=== PATIENT | female | born 1975 ===

== ENCOUNTER 2021-01-24 10:15 | Emergency (ER) | payer OTHER, SELFPAY ==
--- NOTE | ~2021-01-24 | CT_ITS ---
EXAMINATION: CT HEAD WITHOUT CONTRAST CLINICAL INFORMATION: Headache COMPARISON: Previous head CT most recent May 2017 TECHNIQUE: Contiguous axial imaging was performed from the skull base to vertex without intravenous administration of contrast. This CT examination was performed using dose optimization techniques as appropriate, variously including the following: *Automated exposure control *Adjustment of mA and/or kV according to patient size (this includes techniques or standardized protocols for targeted exams where dose is matched to indication/reason for exam; i.e. extremities or head) *Use of iterative reconstruction technique DLP: 719 mGy-cm FINDINGS: There is no evidence of acute intracranial hemorrhage or territorial infarction. No abnormal mass effect or midline shift is seen. [place] to white matter differentiation is well preserved. No extra-axial fluid collections are identified. The ventricles are normal in size. There is no abnormal attenuation within the brain parenchyma. The osseous structures and soft tissues are normal. The mastoid air cells and visualized portions of the paranasal sinuses are well aerated. CT/CT head/brain wo con IMPRESSION: Unremarkable exam.
[2021-01-24 10:46] VITALS: BP 186/104; PULSE 94; RESP 18; TEMP 37.1; O2SAT 97; BMI 50.8
--- NOTE | 2021-01-24 13:10 | ECG_ITS ---
Test Reason : HEADACHE Blood Pressure : / mmHG Vent. Rate : 076 BPM Atrial Rate : 076 BPM P-R Int : 136 ms QRS Dur : 126 ms QT Int : 440 ms P-R-T Axes : 038 007 002 degrees QTc Int : 495 ms Normal sinus rhythm Right bundle branch block Abnormal ECG When compared with ECG of 08-OCT-2016 10:48, Right bundle branch block is now Present Referred By: Dillon Killian Electronically Signed By:MIRIAM CALLOWAY MD
--- NOTE | 2021-01-24 13:12 | ED.HA ---
HPI - Headache General Chief Complaint: Headache Stated Complaint: headache Time Seen by Provider: 01/24/21 13:01 Source: patient Mode of arrival: ambulatory Limitations: no limitations History of Present Illness HPI Narrative: Patient presents to the ED for headache for the past 4 days. Patient states history of migraine and presented with similar headache symptoms. Patient states photophobia. Patient states no fever or chills. Patient denies any neck stiffness. Patient denies any recent head trauma. Patient denies any chest pain, shortness of breath, or back pain. Related Data Home Medications Medication Instructions Recorded Confirmed topiramate 25 mg tablet 25 mg PO BID 08/03/20 11/29/20 Previous Rx's Medication Instructions Recorded cholecalciferol (vitamin D3) 25 25 mcg PO DAILY 90 Days #90 tab 05/23/20 mcg (1,000 unit) tablet gabapentin 300 mg capsule 300 mg PO TID 30 Days #90 cap 08/03/20 omeprazole 20 mg tablet,delayed 20 mg PO DAILY 90 Days #90 tab 12/25/20 release oxycodone 5 mg tablet 5 mg PO Q12H PRN 30 Days #60 tab 12/25/20 naproxen 500 mg PO BID PRN #20 tab 01/24/21 Allergies Allergy/AdvReac Type Severity Reaction Status Date / Time No Known Allergies Allergy Verified 01/24/21 10:46 Review of Systems Review of Systems: Yes all other systems are reviewed and are negative Constitutional: Constitutional: Reports as per HPI, Reports no additional constitutional complaints and Reports headache(s) Eyes: Eyes: Reports as per HPI and Reports no additional eye complaints ENT: Reports system reviewed and no additional complaints, except as documented, Reports as per HPI and Reports headache(s) Cardiovascular: Cardiovascular: Reports as per HPI and Reports no additional cardiovascular complaints Respiratory: Respiratory: Reports as per HPI and Reports no additional respiratory complaints Gastrointestinal: Gastrointestinal: Reports as per HPI and Reports no additional gastrointestinal complaints Genitourinary: Genitourinary: Reports no additional female genitourinary complaints and Reports as per HPI Musculoskeletal: Musculoskeletal: Reports no additional musculoskeletal complaints and Reports as per HPI Neurologic: Reports system reviewed and no additional complaints, except as documented, Reports as per HPI and Reports headache(s) Psychiatric: Psychiatric: Reports no additional psychiatric complaints and Reports as per HPI PMFSH Past Medical History Medical History B12 deficiency GERD (gastroesophageal reflux disease) Hypovitaminosis D Migraines Muscle cramps Obesity Surgical History History of section History of tubal ligation Family History Family History Father No problems noted. Mother Diabetes Hypertension Maternal Grandmother Uterine cancer Diabetes Maternal Aunt Breast cancer Hypertension Diabetes Family/Other FH: mental illness Maternal Uncle Developmental delay, moderate Social History Social History (Updated 11/29/20 @ 13:33 by Tomasa Oro MD) Alcohol intake: former Advance Directives: No Advance Directives Information Provided: No Physical Exam Vital Signs: Vital Signs: Last Vital Signs Temp 98.6 F 01/24/21 13:55 Pulse 62 01/24/21 13:55 Resp 19 01/24/21 13:55 BP 119/67 01/24/21 13:55 Pulse Ox 95 01/24/21 13:55 Body Mass Index 50.8 Const: General: cooperative, healthy appearing, comfortable, no acute distress, well developed and alert Orientation/consciousness: patient oriented x3 HENMT: Head: Yes normal to inspection, Yes No palpable skull fracture present, Yes normocephalic, Yes atraumatic, No abrasion, No Acrocyanosis present, No Rubin's sign, No contusion, No cranial bruits, No hematoma, No laceration, No occipital foramen tenderness, No palpable skull fracture, No raccoon eyes, No scalp lesion, No scalp tenderness, No Temporal artery tenderness present and No periorbital ecchymosis Eyes: Other: Mild photophobia General: appearance normal, both eyes and all related structures Neck: Other: Patient has complete range of motion of neck. Negative for any posterior cervical tenderness on palpation. Negative for occipital tenderness. Right upper trapesiuz tenderness on palpation. Neck: Yes normal visual inspection, Yes full ROM, Yes no lymphadenopathy, Yes no meningeal signs, Yes trachea midline, Yes supple and No tender Chest: Chest palpation & inspection: normal inspection of the chest and normal palpation of entire chest wall Resp: Effort & Inspection: normal respiratory effort and able to speak in complete sentences Auscultation: clear to auscultation bilaterally Cardio: Jugular venous distension: no JVD Heart sounds: S1 normal heart sound present and S2 normal heart sound present GI: Inspection: Yes normal to inspection and No abdominal wall ecchymosis Palpation (GI): Soft to palpation, not firm, nontender, no guarding and not rigid : General: No CVA tenderness and Yes no CVA tenderness Back/Spine/Pelvis: Back: no CVA tenderness, No CVA tenderness and back tenderness (right upper trapesiuz tenderness.) Skin: General skin exam: no rashes or lesions noted and elasticity normal Neuro: Other: Negative for slurred speech. Negative for facial droop. Negative pronator drift. All extremities equal strength 5+. Negative Romberg. Gtvbrl-bz-icve rapid hand movement intact General: patient oriented x3, gait normal, no meningeal signs and CN's II-XI intact bilaterally Cranial nerves: Yes CN's II-XII intact bilaterally Extrem: General: Yes normal to inspection and Yes full ROM Psych: Appearance: grossly normal, well kempt and not disheveled Course Course Course Narrative: Since patient is having migraine exacerbation, but due to patient having elevated blood pressure will do head CT labs and troponin. Reevaluation(s) Reevaluation #1: EKG negative for STEMI. Patient given migraine cocktail except Toradol waiting for head CT scan results. Labs show slight elevated white blood cell count. Patient's white blood cell count was trended and prior lab results shows patient has chronic elevated white blood cell count. Patient is afebrile and non tachy. Patient's blood pressure improved without any blood pressure medication. Not suspecting meningitis. Time: 14:07 Reevaluation #2: Head CT came back normal. Patient's troponin negative. Patient has significantly improved. WIll order Toradol. Time: 16:00 Reevaluation #3: EKG showed new right bundle branch block. Patient is not having any chest pain or shortness of breath. Patient was never placed on nasal cannula. Nasal cannula documentation was error, patient was always on room air. Patient's headache resolved. Not suspecting ACS. Patient is safe for discharge. Perc score 0. Not suspecting PE. Neuro exam is intact Time: 16:50 Additional Reevaluation(s): 18:46. Second troponin negative MDM - Headache MDM Narrative Medical decision making narrative: Migraine headache Lab Data Result diagrams: 01/24/21 13:30 06/09/21 13:30 Labs: Lab Results 01/24/21 01/24/21 01/24/21 Range/Units 13:30 13:30 13:30 WBC 15.3 H (4.8-10.8) X10*3/uL RBC 4.89 (4.20-5.50) X10*6/uL Hgb 12.7 (12.0-16.0) g/dl Hct 39.0 (37-47) % MCV 79.8 L (80-98) fL MCH 26.0 L (27.0-33.0) pg MCHC 32.6 (31.0-35.0) g/dl RDW 14.6 (11.0-16.0) % Plt Count 320 (160-400) X10*3/uL MPV 10.1 (9.4-12.3) fL Immature Gran % (Auto) 0.7 H (0.0-0.4) % Neut % (Auto) 68.7 (45-73) % Lymph % (Auto) 26.7 (20-40) % [place] % (Auto) 3.1 (2-11) % Eos % (Auto) 0.5 (0-4) % Baso % (Auto) 0.3 (0-2) % Lymph # (Auto) 4.1 (1.2-4.9) X10*3/uL [place] # (Auto) 0.5 (0.1-1.2) X10*3/uL Eos # (Auto) 0.1 (0.0-0.4) X10*3/uL Baso # (Auto) 0.0 (0.0-0.2) X10*3/uL Abs Immat Gran (auto) 0.11 H (0.00-0.03) X10*3/uL Absolute Neuts (auto) 10.5 H (2.0-8.3) X10*3/uL Absolute Nucleated RBC 0.000 (0.0-0.012) X10*3/uL Nucleated RBC % (auto) 0.0 (0.0-0.2) /100WBC PT 14.3 H (10.8-13.0) SEC INR 1.2 H (0.9-1.1) APTT 39.0 H (24.1-38.0) SEC Sodium 138 (135-145) mmol/L Potassium 4.4 (3.3-5.1) mmol/L Chloride 105 (96-108) mmol/L Carbon Dioxide 25 (22-29) mmol/L Anion Gap 12 (12-20) BUN 12 (9-16) mg/dL Creatinine 0.80 (0.5-1.4) mg/dL Estim Creat Clear Calc 110.4 Estimated GFR > 60 Random Glucose 84 (60-115) mg/dL Calcium 9.3 (8.4-10.2) mg/dL Total Bilirubin 0.3 (0.0-1.0) mg/dL AST 15 (5-31) U/L ALT 10 (0-31) U/L Alkaline Phosphatase 101 (39-117) U/L Troponin I High Sens (<3.5-17.0) ng/L Total Protein 6.9 (6.5-8.0) g/dL Albumin 3.9 (3.5-5.0) g/dL Beta HCG, Quant mIU/mL 01/24/21 01/24/21 01/24/21 Range/Units 13:30 13:30 17:24 WBC (4.8-10.8) X10*3/uL RBC (4.20-5.50) X10*6/uL Hgb (12.0-16.0) g/dl Hct (37-47) % MCV (80-98) fL MCH (27.0-33.0) pg MCHC (31.0-35.0) g/dl RDW (11.0-16.0) % Plt Count (160-400) X10*3/uL MPV (9.4-12.3) fL Immature Gran % (Auto) (0.0-0.4) % Neut % (Auto) (45-73) % Lymph % (Auto) (20-40) % [place] % (Auto) (2-11) % Eos % (Auto) (0-4) % Baso % (Auto) (0-2) % Lymph # (Auto) (1.2-4.9) X10*3/uL [place] # (Auto) (0.1-1.2) X10*3/uL Eos # (Auto) (0.0-0.4) X10*3/uL Baso # (Auto) (0.0-0.2) X10*3/uL Abs Immat Gran (auto) (0.00-0.03) X10*3/uL Absolute Neuts (auto) (2.0-8.3) X10*3/uL Absolute Nucleated RBC (0.0-0.012) X10*3/uL Nucleated RBC % (auto) (0.0-0.2) /100WBC PT (10.8-13.0) SEC INR (0.9-1.1) APTT (24.1-38.0) SEC Sodium (135-145) mmol/L Potassium (3.3-5.1) mmol/L Chloride (96-108) mmol/L Carbon Dioxide (22-29) mmol/L Anion Gap (12-20) BUN (9-16) mg/dL Creatinine (0.5-1.4) mg/dL Estim Creat Clear Calc Estimated GFR Random Glucose (60-115) mg/dL Calcium (8.4-10.2) mg/dL Total Bilirubin (0.0-1.0) mg/dL AST (5-31) U/L ALT (0-31) U/L Alkaline Phosphatase (39-117) U/L Troponin I High Sens < 3.5 3.7 (<3.5-17.0) ng/L Total Protein (6.5-8.0) g/dL Albumin (3.5-5.0) g/dL Beta HCG, Quant < 2 mIU/mL ECG Data Interpretation: Normal sinus rhythm. Right bundle branch block. Ventricular rate 76. Pr interval 136. QRS 126. QTC 495. Negative STEMI Discharge Plan Discharge Clinical Impression: Migraine Patient Disposition: Home, Self-Care Instructions: Migraine Headache (ED) Additional Instructions: Return to the ED for worsening headache, loss of vision, paralysis of extremities, facial droop, fever, chills, neck stiffness, chest pain, shortness of breath, or any other concerning symptoms. Continue taking oxycodone and topiramate for headache. Will add naproxen to cocktail. Prescriptions: New naproxen 500 mg tablet 500 mg PO BID PRN (Reason: pain) Qty: 20 RF: 0 No Action cholecalciferol (vitamin D3) 25 mcg (1,000 unit) tablet 25 mcg PO DAILY 90 Days Qty: 90 RF: 3 omeprazole 20 mg tablet,delayed release (DR/EC) 20 mg PO DAILY 90 Days Qty: 90 RF: 3 oxycodone 5 mg tablet 5 mg PO Q12H PRN (Reason: chronic pain) 30 Days Qty: 60 RF: 0 topiramate 25 mg tablet 25 mg PO BID RF: 0 gabapentin 300 mg capsule 300 mg PO TID 30 Days Qty: 90 RF: 0 Referrals: Tomasa Nesbitt MD [Primary Care Provider] - 2 days (Migraine excacerbation. Only had one elevated blood pressure. High blood pressure resolved after being given migraine cocktail.) Stand Alone Forms: Work/School Release Interventions: ED Discharge Assessment Last Done: 01/24/21 19:24 Discharge Date/Time: 01/24/21 19:26 Print Language: Bangladeshi
[2021-01-24] MEDS: 0.9 % Sodium Chloride 1,000 ML 999 ML IV (13:32)
[2021-01-24 13:36] LABS: MANUAL DIFF FLAG NO
[2021-01-24 13:38] LABS: Basophils Percent Auto 0.3 % (0-2); Eosinophils Absolute Auto 0.1 X10*3/uL (0.0-0.4); Eosinophils Percent Auto 0.5 % (0-4); Hemoglobin 12.7 g/dl (12.0-16.0); Imm Gran Abs Auto 0.11 X10*3/uL (0.00-0.03); Imm Gran Pct Auto 0.7 % (0.0-0.4); Lymphocytes Absolute Auto 4.1 X10*3/uL (1.2-4.9); Lymphocytes Percent Auto 26.7 % (20-40); Mean Corpuscular HGB Conc 32.6 g/dl (31.0-35.0); Mean Corpuscular Volume 79.8 fL (80-98); Mean Platelet Volume 10.1 fL (9.4-12.3); Monocytes Absolute Auto 0.5 X10*3/uL (0.1-1.2); Monocytes Percent Auto 3.1 % (2-11); Neutrophils Absolute Auto 10.5 X10*3/uL (2.0-8.3); Neutrophils Percent Auto 68.7 % (45-73); Platelet Count 320 X10*3/uL (160-400); Red Blood Count 4.89 X10*6/uL (4.20-5.50); Red Cell Distribution Width 14.6 % (11.0-16.0); White Blood Count 15.3 X10*3/uL (4.8-10.8)
[2021-01-24 13:45] LABS: INTERNATIONAL NORM RATIO 1.2 (0.9-1.1); Prothrombin Time 14.3 SEC (10.8-13.0)
[2021-01-24] MEDS: Metoclopramide HCl 10 MG/2 ML VIAL IVPUSH (13:50)
[2021-01-24] MEDS: diphenhydrAMINE HCL 50 MG/ML VIAL IVPUSH (13:50)
[2021-01-24] MEDS: Butalb/Acetamin/Caff 50/325/40 TABLET 1 TAB PO (13:50)
[2021-01-24 13:55] VITALS: BP 119/67; PULSE 62; RESP 19; TEMP 37; O2SAT 95
[2021-01-24 15:23] LABS: Alanine Aminotransferase 10 U/L (0-31); Albumin Level 3.9 g/dL (3.5-5.0); Alkaline Phosphatase 101 U/L (39-117); Anion Gap 12 (12-20); Aspartate Amino Transferase 15 U/L (5-31); Blood Urea Nitrogen 12 mg/dL (9-16); Chloride 105 mmol/L (96-108); Creatinine Clr Calc Pharmacy 110.4; Estimated Glomerular Filt Rate > 60; Glucose Random 84 mg/dL (60-115); Potassium 4.4 mmol/L (3.3-5.1)
[2021-01-24 15:29] LABS: HCG Quantitative < 2 mIU/mL; Troponin-I High Sensitivity < 3.5 ng/L (<3.5-17.0)
[2021-01-24 15:49] LABS: Bilirubin Total 0.3 mg/dL (0.0-1.0); Calcium 9.3 mg/dL (8.4-10.2); Carbon Dioxide 25 mmol/L (22-29); Sodium 138 mmol/L (135-145); Total Protein 6.9 g/dL (6.5-8.0)
[2021-01-24] MEDS: Ketorolac Tromethamine 30 MG/ML VIAL IVPUSH (16:27)
[2021-01-24 18:05] LABS: Troponin-I High Sensitivity 3.7 ng/L (<3.5-17.0)
== END 2021-01-24 19:26 | disposition home or self-care (01) ==
PROVIDERS: Physician Assistant; Emergency Provider Emergency Medicine; PCP Internal Medicine
DX: G43.009 Migraine without aura, not intractable, without status migrainosus (principal); I45.10 Unspecified right bundle-branch block
CPT/HCPCS: 36415; 70450; 80053; 84484; 84702; 85025; 85610; 85730; 93005; 96361; 96374; 96375; 99284; J1200; J1885; J2765

== ENCOUNTER 2021-01-30 14:52 | Outpatient (REF) | payer OTHER, SELFPAY ==
--- NOTE | ~2021-01-30 | MM_ITS ---
EXAMINATION: MM SCREENING DIGITAL BREAST TOMOSYNTHESIS, BILATERAL CLINICAL INFORMATION: Screening. Asymptomatic. The lifetime risk of breast cancer based on the Tyrer-Cuzick Model is 9%. COMPARISON: Mammography: 09/15/2017, 08/28/2016, 02/14/2015 TECHNIQUE: Digital breast tomosynthesis is performed in both the craniocaudal and mediolateral oblique views along with computer-aided detection (CAD). Synthesized 2D images are generated from the tomosynthesis. Additional bilateral CC and additional bilateral MLO views are provided. FINDINGS: The breasts are almost entirely fatty (ACR BI-RADS breast composition Category a). There are no significant masses, abnormal calcifications, or other abnormalities. Parenchymal pattern is similar to prior exams. The axilla and skin contours are unremarkable. MM/MM tomosynthesis screening BI IMPRESSION: No mammographic evidence of malignancy. ASSESSMENT: BI-RADS 1: Negative RECOMMENDATION: Routine annual mammography screening. This patient's information was entered into a reminder system with a target due date for their next mammogram.
== END 2021-01-30 14:53 | disposition home or self-care (01) ==
LOC: HO.MAMMO 14:52
PROVIDERS: Visit Provider Internal Medicine
DX: Z12.31 Encounter for screening mammogram for malignant neoplasm of breast (principal)
CPT/HCPCS: 77063; 77067

== ENCOUNTER → 2021-02-21 14:30 | Outpatient (BNVA) | payer OTHER, SELFPAY | PROVIDERS: PCP Internal Medicine; Referring Provider Internal Medicine; Visit Provider Physician Assistant | DX: E66.01 Morbid (severe) obesity due to excess calories (principal); K21.9 Gastro-esophageal reflux disease without esophagitis; Z68.43 Body mass index [BMI] 50.0-59.9, adult | CPT/HCPCS: 99202 ==

== ENCOUNTER 2021-02-22 20:16 | Emergency (ER) | payer OTHER, SELFPAY ==
[2021-02-22 20:43] VITALS: BP 193/80; PULSE 104; RESP 18; TEMP 36.7; O2SAT 96; BMI 50.3
[2021-02-22 21:24] VITALS: BP 162/80; PULSE 82; RESP 15; TEMP 36.7; O2SAT 96
--- NOTE | 2021-02-22 21:34 | ED.GENADULT ---
HPI - General Adult General Chief complaint: General Medical Stated complaint: High bp Time Seen by Provider: 02/22/21 21:33 Source: patient and old records reviewed Mode of arrival: ambulatory Limitations: no limitations History of Present Illness HPI narrative: has had a headache x 3 days but her BP has been up to 190s as well even at appointment earlier today, does not take BP medications complaint: headaches, HTN Onset (ago): day(s) (3) Location: head Quality: aching and constant Pain Consistency: constant Relieving factors: none Exacerbating factors: movement and other (bright light noise) Associated symptoms: nausea/vomiting Treatments prior to arrival: none Related Data Home Medications Medication Instructions Recorded Confirmed topiramate 25 mg tablet 25 mg PO BID 08/03/20 02/21/21 meclizine 12.5 mg tablet 12.5 mg PO DAILY 02/21/21 02/21/21 mecobalamin (vitamin B12) 5,000 mcg PO 02/21/21 02/21/21 mcg disintegrating tablet Previous Rx's Medication Instructions Recorded cholecalciferol (vitamin D3) 25 25 mcg PO DAILY 90 Days #90 tab 05/23/20 mcg (1,000 unit) tablet gabapentin 300 mg capsule 300 mg PO TID 30 Days #90 cap 08/03/20 naproxen 500 mg PO BID PRN #20 tab 01/24/21 omeprazole 20 mg tablet,delayed 20 mg PO DAILY 90 Days #90 tab 02/05/21 release oxycodone 5 mg tablet 5 mg PO Q12H PRN 30 Days #60 tab 02/05/21 [id number]-kgonlwuqingrs-[id number] 1 tab PO Q6H PRN #20 tab 02/22/21 cyclobenzaprine 10 mg PO TID PRN #14 tab 02/22/21 ondansetron 4 mg PO Q8H PRN #20 tab 02/22/21 Allergies Allergy/AdvReac Type Severity Reaction Status Date / Time No Known Allergies Allergy Verified 02/22/21 20:43 Review of Systems Review of Systems: Constitutional : No Fever, No Chills, No Fatigue ENT/Mouth : No sore throat, No Rhinorrhea Eyes: pos Eye Pain, No Swelling, No Redness Cardiovascular : No Chest Pain, No SOB, No Dyspnea on Exertion Respiratory : No Cough, No Sputum Gastrointestinal : pos Nausea, pos Vomiting, No Diarrhea, No abdominal Pain Genitourinary : No Dysuria, No Urinary Frequency, No Hematuria, Musculoskeletal : No joint pain, No Myalgias, No Joint Swelling Skin : No Skin Lesions, No rash Neuro : No Weakness, No Numbness, No Dizziness, positive Headache Psych : No Anxiety/Panic, No Depression Heme/Lymph: No Bruising, No Bleeding,No Lymphadenopathy Endocrine : No Polyuria, No Polydipsia All other systems reviewed and are negative [facility] Past Medical History Medical History B12 deficiency GERD (gastroesophageal reflux disease) Hypovitaminosis D Migraines Muscle cramps Neck pain Obesity Surgical History History of section History of tubal ligation Family History Family History Father No problems noted. Mother Diabetes Hypertension Maternal Grandmother Uterine cancer Diabetes Maternal Aunt Breast cancer Hypertension Diabetes Family/Other FH: mental illness Maternal Uncle Developmental delay, moderate Social History Social History Alcohol intake: never Patient Tobacco Use Status: Former Tobacco user Use of substances other than those prescribed or required for medical reasons: No Advance Directives: No Advance Directives Information Provided: No Advance Directives on File: No Physical Exam Vital Signs: Vital Signs: Last Vital Signs Temp 98.1 F 02/22/21 21:24 Pulse 82 02/22/21 21:24 Resp 15 02/22/21 21:24 BP 162/80 H 02/22/21 21:24 Pulse Ox 96 02/22/21 21:24 Body Mass Index 50.3 Appearance: Alert. Oriented X3. No acute distress. Eyes: Pupils equal, round and reactive to light. Photophobia ENT: Pharynx normal. Neck: Normal inspection. Neck supple. no meningeal signs CVS: Normal heart rate and rhythm. Pulses normal. Respiratory: No respiratory distress. Breath sounds normal. Abdomen: Soft and non-tender. Skin: Skin warm and dry. Normal skin color. Normal skin turgor. Extremities: No lower extremity edema. No calf ttp Neuro: Oriented X 3. No motor deficit. No sensory deficit. Course Course Course Narrative: headaches completely resolved 130/62 suspect headache was causing the HTN Medical Decision Making MDM Narrative Medical decision making narrative: 45 yo female with hx of migraines, GERD c/o headache with n/v photophobia - gradual onset, daily headaches has not had HTN before it is hard to determine if it is the pain causing her symptoms or if the HTN is although now BP is 160s seems unlikely to be causing her headaches - will provide migraine cocktail then reassess, gradual onset normal neuro exam - doubt [facility] or [employer] infection, dispo per results and findings. Lab Data Result diagrams: 02/22/21 21:58 02/22/21 21:58 Labs: Lab Results 02/22/21 02/22/21 Range/Units 21:58 21:58 WBC 14.4 H (4.8-10.8) X10*3/uL RBC 4.71 (4.20-5.50) X10*6/uL Hgb 12.2 (12.0-16.0) g/dl Hct 37.6 (37-47) % MCV 79.8 L (80-98) fL MCH 25.9 L (27.0-33.0) pg MCHC 32.4 (31.0-35.0) g/dl RDW 14.6 (11.0-16.0) % Plt Count 283 (160-400) X10*3/uL MPV 10.7 (9.4-12.3) fL Immature Gran % (Auto) 0.7 H (0.0-0.4) % Neut % (Auto) 63.5 (45-73) % Lymph % (Auto) 29.2 (20-40) % [place] % (Auto) 5.8 (2-11) % Eos % (Auto) 0.5 (0-4) % Baso % (Auto) 0.3 (0-2) % Lymph # (Auto) 4.2 (1.2-4.9) X10*3/uL [place] # (Auto) 0.8 (0.1-1.2) X10*3/uL Eos # (Auto) 0.1 (0.0-0.4) X10*3/uL Baso # (Auto) 0.1 (0.0-0.2) X10*3/uL Abs Immat Gran (auto) 0.10 H (0.00-0.03) X10*3/uL Absolute Neuts (auto) 9.1 H (2.0-8.3) X10*3/uL Absolute Nucleated RBC 0.000 (0.0-0.012) X10*3/uL Nucleated RBC % (auto) 0.0 (0.0-0.2) /100WBC Sodium 139 (135-145) mmol/L Potassium 3.9 (3.3-5.1) mmol/L Chloride 106 (96-108) mmol/L Carbon Dioxide 22 (22-29) mmol/L Anion Gap 15 (12-20) BUN 15 (9-16) mg/dL Creatinine 0.83 (0.5-1.4) mg/dL Estim Creat Clear Calc 105.7 Estimated GFR > 60 Random Glucose 88 (60-115) mg/dL Calcium 8.9 (8.4-10.2) mg/dL ECG Data Attestation: I personally reviewed and interpreted this ECG as follows: Interpretation: Rate: 77 Rhythm: NSR [place]: normal Normal P waves. Normal YEISON. RBBB ST T wave : normal no TANIKA qTC: normal prior studies: no acute ischemia The study has been interpreted contemporaneously by me. . Discharge Plan Discharge Clinical Impression: Migraines Qualifiers: Migraine type: without aura Status migrainosus presence: without status migrainosus Intractability: not intractable Qualified Code(s): G43.009 - Migraine without aura, not intractable, without status migrainosus Patient Disposition: Home, Self-Care Instructions: Acute Headache (ED) Additional Instructions: return to ED for any worsening symptoms or concerns Prescriptions: New cyclobenzaprine 10 mg tablet 10 mg PO TID PRN (Reason: muscle spasm) Qty: 14 RF: 0 ddhageqnkf-xoxvyvldkfdos-nnsx 50-325-40 mg tablet 1 tab PO Q6H PRN (Reason: pain) Qty: 20 RF: 0 ondansetron 4 mg tablet,disintegrating 4 mg PO Q8H PRN (Reason: nausea and vomiting) Qty: 20 RF: 0 No Action cholecalciferol (vitamin D3) 25 mcg (1,000 unit) tablet 25 mcg PO DAILY 90 Days Qty: 90 RF: 3 omeprazole 20 mg tablet,delayed release (DR/EC) 20 mg PO DAILY 90 Days Qty: 90 RF: 3 oxycodone 5 mg tablet 5 mg PO Q12H PRN (Reason: chronic pain) 30 Days Qty: 60 RF: 0 naproxen 500 mg tablet 500 mg PO BID PRN (Reason: pain) Qty: 20 RF: 0 topiramate 25 mg tablet 25 mg PO BID RF: 0 gabapentin 300 mg capsule 300 mg PO TID 30 Days Qty: 90 RF: 0 mecobalamin (vitamin B12) 5,000 mcg tablet,disintegrating PO RF: 0 meclizine 12.5 mg tablet 12.5 mg PO DAILY RF: 0 Referrals: Tomasa Nesbitt MD [Primary Care Provider] - 2 days (if not better) Print Language: Zambian
--- NOTE | 2021-02-22 21:41 | ECG_ITS ---
Test Reason : HYPERTENSION Blood Pressure : / mmHG Vent. Rate : 077 BPM Atrial Rate : 077 BPM P-R Int : 134 ms QRS Dur : 134 ms QT Int : 430 ms P-R-T Axes : 038 -04 000 degrees QTc Int : 486 ms Normal sinus rhythm Right bundle branch block Abnormal ECG When compared with ECG of 24-JAN-2021 13:21, No significant change was found Referred By: Stephanie Gonzalez Electronically Signed By:DEIDRA DALAL
[2021-02-22] MEDS: Metoclopramide HCl 10 MG/2 ML VIAL IVPUSH (22:00)
[2021-02-22] MEDS: 0.9 % Sodium Chloride 1,000 ML 999 ML IVCONT (22:00)
[2021-02-22 22:01] LABS: MANUAL DIFF FLAG NO
[2021-02-22] MEDS: diphenhydrAMINE HCL 50 MG/ML VIAL 25 MG IVPUSH (22:02)
[2021-02-22] MEDS: Ketorolac Tromethamine 30 MG/ML VIAL IVPUSH (22:03)
[2021-02-22] MEDS: Magnesium Sulfate/H2O 2 GM/50 ML PIGGYBACK IV (22:04)
[2021-02-22 22:08] LABS: Basophils Absolute Auto 0.1 X10*3/uL (0.0-0.2); Basophils Percent Auto 0.3 % (0-2); Eosinophils Absolute Auto 0.1 X10*3/uL (0.0-0.4); Eosinophils Percent Auto 0.5 % (0-4); Hematocrit 37.6 % (37-47); Hemoglobin 12.2 g/dl (12.0-16.0); Imm Gran Pct Auto 0.7 % (0.0-0.4); Lymphocytes Absolute Auto 4.2 X10*3/uL (1.2-4.9); Lymphocytes Percent Auto 29.2 % (20-40); Mean Corpuscular HGB Conc 32.4 g/dl (31.0-35.0); Mean Corpuscular Hemoglobin 25.9 pg (27.0-33.0); Mean Corpuscular Volume 79.8 fL (80-98); Mean Platelet Volume 10.7 fL (9.4-12.3); Monocytes Absolute Auto 0.8 X10*3/uL (0.1-1.2); Monocytes Percent Auto 5.8 % (2-11); Neutrophils Absolute Auto 9.1 X10*3/uL (2.0-8.3); Neutrophils Percent Auto 63.5 % (45-73); Platelet Count 283 X10*3/uL (160-400); Red Blood Count 4.71 X10*6/uL (4.20-5.50); Red Cell Distribution Width 14.6 % (11.0-16.0); White Blood Count 14.4 X10*3/uL (4.8-10.8)
[2021-02-22 22:36] LABS: Anion Gap 15 (12-20); Blood Urea Nitrogen 15 mg/dL (9-16); Calcium 8.9 mg/dL (8.4-10.2); Carbon Dioxide 22 mmol/L (22-29); Chloride 106 mmol/L (96-108); Creatinine Clr Calc Pharmacy 105.7; Estimated Glomerular Filt Rate > 60; Glucose Random 88 mg/dL (60-115); Potassium 3.9 mmol/L (3.3-5.1); Sodium 139 mmol/L (135-145)
[2021-02-22 23:37] VITALS: BP 130/62
--- NOTE | 2021-02-22 23:39 | PC.NURSE ---
Patient's headache completely resolved
== END 2021-02-23 00:04 | disposition home or self-care (01) ==
PROVIDERS: Emergency Provider Emergency Medicine; PCP Internal Medicine
DX: G43.009 Migraine without aura, not intractable, without status migrainosus (principal)
CPT/HCPCS: 36415; 80048; 85025; 93005; 96361; 96365; 96366; 96375; 99284; J1200; J1885; J2765; J3475

== ENCOUNTER 2021-09-17 15:04 | Outpatient (REF) | payer OTHER, SELFPAY ==
--- NOTE | ~2021-09-17 | US_ITS ---
EXAMINATION: US VENOUS ULTRASOUND WITH DOPPLER LOWER EXTREMITY, RIGHT CLINICAL INFORMATION: Right leg pain. COMPARISON: None TECHNIQUE: Ultrasound of the deep veins is performed from the hip to the calf with compression sonography and color and pulse Doppler assessment. Spectral analysis with color-flow imaging is performed. FINDINGS: There is normal venous compression and respiratory variation and augmented flow. The visualized common femoral vein, superficial femoral vein, profunda femoral vein, popliteal vein, and the trifurcation region shows no evidence of deep venous thrombosis. There is no significant popliteal fossa cyst. Incidental finding of a small right groin lymph node measuring 0.7 x 0.5 cm. If the patient's symptoms persist, followup ultrasound in 5 days 7 days might be of value to exclude proximal propagation from a non-visualized calf vein. US/US venous duplex LE RT IMPRESSION: No DVT demonstrated in the right lower extremity.
== END 2021-09-17 15:05 | disposition home or self-care (01) ==
LOC: HO.US 15:04
PROVIDERS: PCP Internal Medicine; Visit Provider Internal Medicine
DX: M79.604 Pain in right leg (principal)
CPT/HCPCS: 93971

== ENCOUNTER 2021-11-28 09:34 | Outpatient (REF) | payer OTHER, SELFPAY ==
[2021-11-28 11:16] LABS: Anion Gap 15 (12-20); Blood Urea Nitrogen 13 mg/dL (9-16); Calcium 9.3 mg/dL (8.4-10.2); Carbon Dioxide 24 mmol/L (22-29); Chloride 105 mmol/L (96-108); Estimated Glomerular Filt Rate > 60; Glucose Random 93 mg/dL (60-115); Potassium 5.2 mmol/L (3.3-5.1); Sodium 139 mmol/L (135-145)
== END 2021-11-28 09:35 | disposition home or self-care (01) ==
LOC: HO.LAB 09:34
PROVIDERS: PCP Internal Medicine; Visit Provider Nurse Practitioner Family
DX: I10 Essential (primary) hypertension (principal)
CPT/HCPCS: 36415; 80048

== ENCOUNTER 2021-12-08 09:47 | Outpatient (REF) | payer OTHER, SELFPAY ==
[2021-12-08 09:53] LABS: MANUAL DIFF FLAG NO
[2021-12-08 10:36] LABS: Basophils Percent Auto 0.3 % (0-2); Eosinophils Absolute Auto 0.1 X10*3/uL (0.0-0.4); Hematocrit 39.2 % (37.0-47.0); Hemoglobin 12.5 g/dl (12.0-16.0); Imm Gran Abs Auto 0.05 X10*3/uL (0.00-0.03); Imm Gran Pct Auto 0.4 % (0.0-0.4); Lymphocytes Absolute Auto 4.6 X10*3/uL (1.2-4.9); Lymphocytes Percent Auto 32.7 % (20-40); Mean Corpuscular HGB Conc 31.9 g/dl (31.0-35.0); Mean Corpuscular Hemoglobin 25.9 pg (27.0-33.0); Mean Corpuscular Volume 81.3 fL (80.0-98.0); Mean Platelet Volume 10.9 fL (9.4-12.3); Monocytes Absolute Auto 0.4 X10*3/uL (0.1-1.2); Monocytes Percent Auto 2.8 % (2-11); Neutrophils Absolute Auto 8.9 x10*3/uL (2.0-8.3); Neutrophils Percent Auto 62.8 % (45-73); Platelet Count 336 X10*3/uL (160-400); Red Blood Count 4.82 X10*6/uL (4.20-5.50); Red Cell Distribution Width 14.9 % (11.0-16.0); White Blood Count 14.2 X10*3/uL (4.8-10.8)
[2021-12-08 11:07] LABS: Anion Gap 13 (12-20); Blood Urea Nitrogen 17 mg/dL (9-16); Calcium 9.4 mg/dL (8.4-10.2); Carbon Dioxide 26 mmol/L (22-29); Chloride 104 mmol/L (96-108); Estimated Glomerular Filt Rate > 60; Glucose Random 97 mg/dL (60-115); Potassium 4.8 mmol/L (3.3-5.1); Sodium 138 mmol/L (135-145)
== END 2021-12-08 09:48 | disposition home or self-care (01) ==
LOC: HO.LAB 09:47
PROVIDERS: PCP Internal Medicine; Visit Provider Nurse Practitioner Family
DX: I10 Essential (primary) hypertension (principal); E87.5 Hyperkalemia; L03.119 Cellulitis of unspecified part of limb
CPT/HCPCS: 36415; 80048; 85025

== ENCOUNTER → 2021-12-21 13:15 | Outpatient (BNVA) | payer OTHER, SELFPAY | PROVIDERS: Visit Provider Internal Medicine | DX: R22.41 Localized swelling, mass and lump, right lower limb (principal) | CPT/HCPCS: 99202 ==

== ENCOUNTER 2021-12-27 13:25 | Outpatient (REF) | payer OTHER, SELFPAY | END 2021-12-27 13:26 | disposition home or self-care (01) | LOC: HO.LAB 13:25 | PROVIDERS: Referring Provider Internal Medicine; Visit Provider Surgery | DX: L81.9 Disorder of pigmentation, unspecified (principal) | CPT/HCPCS: 11104; 88305; 88312; 99202 ==

== ENCOUNTER → 2022-01-04 15:16 | Outpatient (BNVA) | payer OTHER, SELFPAY | PROVIDERS: Visit Provider Internal Medicine | DX: L81.9 Disorder of pigmentation, unspecified (principal); R22.41 Localized swelling, mass and lump, right lower limb | CPT/HCPCS: 99212 ==

== ENCOUNTER 2022-03-12 09:42 | Outpatient (REF) | payer OTHER, SELFPAY ==
[2022-03-12 11:10] LABS: Anion Gap 14 (12-20); Blood Urea Nitrogen 15 mg/dL (9-16); Calcium 8.8 mg/dL (8.4-10.2); Carbon Dioxide 23 mmol/L (22-29); Chloride 109 mmol/L (96-108); Estimated Glomerular Filt Rate > 60; Glucose Random 93 mg/dL (60-115); Potassium 4.9 mmol/L (3.3-5.1); Sodium 141 mmol/L (135-145)
== END 2022-03-12 09:43 | disposition home or self-care (01) ==
LOC: HO.LAB 09:42
PROVIDERS: PCP Internal Medicine; Visit Provider Nurse Practitioner Family
DX: I73.9 Peripheral vascular disease, unspecified (principal); I83.11 Varicose veins of right lower extremity with inflammation; I10 Essential (primary) hypertension
CPT/HCPCS: 36415; 80048; 99202

== ENCOUNTER 2022-04-08 12:06 | Outpatient (REF) | payer OTHER, SELFPAY ==
--- NOTE | ~2022-04-08 | XR_ITS ---
EXAMINATION: XR CHEST CLINICAL INFORMATION: Pneumonia. COMPARISON: 08/06/2019 chest radiograph. TECHNIQUE: 2 views of the chest were obtained. FINDINGS: No significant abnormality is noted involving the heart, lungs, mediastinum, bony thorax or soft tissues. XR/XR chest 2V IMPRESSION: No acute cardiopulmonary process.
== END 2022-04-08 12:07 | disposition home or self-care (01) ==
LOC: HO.HMGCX 12:06
PROVIDERS: PCP Internal Medicine; Visit Provider Internal Medicine
DX: J18.9 Pneumonia, unspecified organism (principal)
CPT/HCPCS: 71046

== ENCOUNTER 2022-06-09 17:30 | Emergency (ER) | payer OTHER, SELFPAY ==
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
[2022-06-09 17:51] VITALS: BP 123/54; BP 138/64; PULSE 95; PULSE 99; RESP 16; O2SAT 97; BMI 49.0
[2022-06-09 18:49] LABS: MANUAL DIFF FLAG NO
[2022-06-09 18:50] LABS: Basophils Absolute Auto 0.1 X10*3/uL (0.0-0.2); Basophils Percent Auto 0.4 % (0-2); Eosinophils Absolute Auto 0.1 X10*3/uL (0.0-0.4); Eosinophils Percent Auto 0.5 % (0-4); Hematocrit 38.2 % (37.0-47.0); Hemoglobin 12.2 g/dl (12.0-16.0); Imm Gran Abs Auto 0.05 X10*3/uL (0.00-0.03); Imm Gran Pct Auto 0.4 % (0.0-0.4); Lymphocytes Absolute Auto 2.8 X10*3/uL (1.2-4.9); Lymphocytes Percent Auto 22.2 % (20-40); Mean Corpuscular HGB Conc 31.9 g/dl (31.0-35.0); Mean Corpuscular Hemoglobin 26.1 pg (27.0-33.0); Mean Corpuscular Volume 81.6 fL (80.0-98.0); Mean Platelet Volume 10.8 fL (9.4-12.3); Monocytes Absolute Auto 0.5 X10*3/uL (0.1-1.2); Monocytes Percent Auto 3.8 % (2-11); Neutrophils Absolute Auto 9.3 x10*3/uL (2.0-8.3); Neutrophils Percent Auto 72.7 % (45-73); Platelet Count 318 X10*3/uL (160-400); Red Blood Count 4.68 X10*6/uL (4.20-5.50); Red Cell Distribution Width 15.2 % (11.0-16.0); White Blood Count 12.8 X10*3/uL (4.8-10.8)
[2022-06-09 19:15] LABS: Alanine Aminotransferase 15 U/L (0-31); Albumin Level 4.1 g/dL (3.5-5.0); Alkaline Phosphatase 112 U/L (39-117); Anion Gap 18 (12-20); Aspartate Amino Transferase 22 U/L (5-31); Bilirubin Total < 0.2 mg/dL (0.0-1.0); Blood Urea Nitrogen 20 mg/dL (9-16); Calcium 8.8 mg/dL (8.4-10.2); Carbon Dioxide 20 mmol/L (22-29); Chloride 106 mmol/L (96-108); Creatinine Clr Calc Pharmacy 88.1; Estimated Glomerular Filt Rate > 60; Glucose Random 110 mg/dL (60-115); Potassium 4.7 mmol/L (3.3-5.1); Sodium 139 mmol/L (135-145); Total Protein 7.3 g/dL (6.5-8.0)
[2022-06-09 19:20] LABS: HCG Quantitative < 2 mIU/mL
[2022-06-09] MEDS: diphenhydrAMINE HCL 50 MG/ML VIAL IVPUSH (19:49)
[2022-06-09] MEDS: iohexoL 350 MG/ML 100 ML INFUS..BTL IV (19:52)
[2022-06-09 20:15] VITALS: BP 174/77; PULSE 90; RESP 16; TEMP 36.8; O2SAT 96
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
[2022-06-09] MEDS: Acetaminophen 325 MG TABLET 975 MG PO (20:52)
== END 2022-06-09 21:45 | disposition home or self-care (01) ==
PROVIDERS: Physician Assistant; Emergency Provider Internal Medicine; PCP Internal Medicine
DX: S13.4XXA Sprain of ligaments of cervical spine, initial encounter (principal); S06.0X0A Concussion without loss of consciousness, initial encounter; M54.50 Low back pain, unspecified; M54.2 Cervicalgia; R51.9 Headache, unspecified; M54.6 Pain in thoracic spine; V43.52XA Car driver injured in collision with other type car in traffic accident, initial encounter; Y93.9 Activity, unspecified; Y92.410 Unspecified street and highway as the place of occurrence of the external cause; Y99.9 Unspecified external cause status; Z79.899 Other long term (current) drug therapy; Z87.891 Personal history of nicotine dependence
CPT/HCPCS: 36415; 70450; 71260; 72125; 74177; 80053; 84702; 85025; 96374; 96375; 99284; J1200; Q9967

== ENCOUNTER 2022-07-01 14:40 | Outpatient (REF) | payer OTHER, SELFPAY ==
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
== END 2022-07-01 14:41 | disposition home or self-care (01) ==
LOC: HO.MAMMO 14:40
PROVIDERS: PCP Internal Medicine; Visit Provider Internal Medicine
DX: N64.4 Mastodynia (principal)
CPT/HCPCS: 76642; 77062; 77066

== ENCOUNTER 2022-08-28 13:24 | Outpatient (REF) | payer OTHER, SELFPAY ==
[2022-08-29 03:02] LABS: CT PCR NOT DETECTED (Not Detect.); NG PCR NOT DETECTED (Not Detect.)
[2022-08-29 09:22] LABS: BV Int Neg Control Negative (Negative); BV Int Pos Control Positive (Positive)
== END 2022-08-28 13:25 | disposition home or self-care (01) ==
LOC: HO.LNP 13:24
PROVIDERS: PCP Internal Medicine; Visit Provider Advanced Practice Midwife
DX: Z11.3 Encounter for screening for infections with a predominantly sexual mode of transmission (principal); R93.5 Abnormal findings on diagnostic imaging of other abdominal regions, including retroperitoneum
CPT/HCPCS: 0353U; 87480; 87510; 87660; 99202

== ENCOUNTER 2022-10-31 08:07 | Outpatient (REF) | payer OTHER, SELFPAY ==
--- NOTE | ~2022-10-31 | US_ITS ---
EXAMINATION: US KIDNEYS WITH RENAL ARTERY DOPPLER CLINICAL INFORMATION: Hypertension. COMPARISON: CT abdomen and pelvis 06/09/2022. TECHNIQUE: Ultrasound of the kidneys was performed along with color flow Doppler imaging and velocity measurements in the proximal mid and distal renal arteries. Aortic velocities were measured and renal/aortic ratios were attempted. Segmental resistive indices were measured bilaterally. FINDINGS: The kidneys appeared normal with the right kidney measuring 11.2 x 4.6 x 6.3 cm and the left kidney measuring 11.8 x 6.5 x 6.2 cm. No renal masses, renal stones or hydronephrosis are seen. Renal cortical thickness appears normal. Velocity measurements in the proximal mid and distal renal arteries are normal. Velocity in the aorta is greater than 100 and, therefore, the renal aortic ratios cannot be utilized. Segmental resistive indices were normal bilaterally at less than 0.80. The bladder appeared unremarkable. US/US renal doppler IMPRESSION: No evidence to suggest renal artery stenosis.
--- NOTE | ~2022-10-31 | US_ITS ---
EXAMINATION: US DUPLEX RETROPERITONEAL, LIMITED CLINICAL INFORMATION: Hypertensive. Right kidney malrotated. COMPARISON: CT of June 09, 2022 TECHNIQUE: Grayscale evaluation of the kidneys. Real-time evaluation of the abdominal aorta and main renal arteries. Color mapping and spectral analysis of the aorta, main renal arteries, and intrarenal arteries. FINDINGS: RENAL ULTRASOUND: The right kidney measures 11.2 x 4.6 x 6.3 cm. The left kidney measures 11.8 x 6.5 x 6.2 cm. There is no dilation of the intrarenal collecting system either side. The renal cortical echogenicity is unremarkable.. There is no suspicious renal mass or shadowing calculus. There is no perinephric abnormality. On the provided imaging of the previously noted left renal cyst is not identified. COLOR MAPPING AND SPECTRAL ANALYSIS: The peak systolic velocity within the proximal abdominal aorta is 116 cm/s. Interrogation of the main renal artery demonstrates velocities (systolic/diastolic) as follows: Proximal right: 152 cm/s. Mid right: 137 cm/s. Distal right: 159 cm/s. Proximal left: 59 cm/s. Mid left: 103 cm/s. Distal left: 149 cm/s. If the aortic peak systolic velocity is greater than 100 cm/s then the aortic velocity cannot be used to calculate the aortic artery ratio. The segmental resistive indices bilaterally are normal being less than 0.8. The renal veins are patent. US/US renal BI IMPRESSION: No evidence of hemodynamically significant renal artery stenosis. No evidence of cortical thinning or medical renal disease.
== END 2022-10-31 08:08 | disposition home or self-care (01) ==
LOC: HO.HMGCX 08:07
PROVIDERS: PCP Internal Medicine; Visit Provider Internal Medicine
DX: I10 Essential (primary) hypertension (principal)
CPT/HCPCS: 76775; 93975

== ENCOUNTER 2022-11-07 14:07 | Outpatient (REF) | payer OTHER, SELFPAY ==
--- NOTE | ~2022-11-07 | US_ITS ---
EXAMINATION: US PELVIS COMPLETE CLINICAL INFORMATION: Abnormal findings on recent diagnostic CT COMPARISON: CT abdomen 06/09/2022 TECHNIQUE: Transabdominal and transvaginal imaging was performed. FINDINGS: The uterus is of normal size and echogenicity measuring 7.6 x 4.1 x 5.5 cm. A regular homogeneous endometrium is identified measuring 1.2 cm. The ovary right measures 6.5 x 4.3 x 5.0 cm for a volume of 72 mL. The left measures 12.0 x 9.7 x 9.4 cm for a volume of 57.3 mL. A 5.6 x 4.7 x 5.1 cm echogenic avascular right ovarian mass which previously demonstrated macroscopic fat on prior CT. A 8.7 x 8.5 x 9.0 cm mixed solid and cystic lesion with echogenic avascular solid components in the level homogeneous internal echoes, which previously demonstrated macroscopic fat on prior CT. A 5.2 cm simple left ovarian cyst. There is no pelvic free fluid. US/US pelvic and transvaginal IMPRESSION: Bilateral ovarian masses measuring 5.6 cm on the right and 9.0 cm on the left which previously demonstrated macroscopic fat on prior CT compatible with dermoid cysts. Given size recommend surgical evaluation and if not resected further evaluation with MR with contrast and annual follow-up ultrasound. A 5.2 cm simple left ovarian cyst almost certainly benign, no follow-up imaging recommended.
== END 2022-11-07 14:08 | disposition home or self-care (01) ==
LOC: HO.US 14:07
PROVIDERS: PCP Internal Medicine; Visit Provider Advanced Practice Midwife
DX: R93.5 Abnormal findings on diagnostic imaging of other abdominal regions, including retroperitoneum (principal)
CPT/HCPCS: 76830; 76856

== ENCOUNTER 2022-11-12 12:11 | Outpatient (REF) | payer OTHER, SELFPAY | END 2022-11-12 12:12 | disposition home or self-care (01) | LOC: HO.LNP 12:11 | PROVIDERS: PCP Internal Medicine; Visit Provider Obstetrics & Gynecology | DX: R10.2 Pelvic and perineal pain (principal); N83.292 Other ovarian cyst, left side; R31.29 Other microscopic hematuria | CPT/HCPCS: 99212 ==

== ENCOUNTER 2022-11-12 13:01 | Outpatient (REF) | payer OTHER, SELFPAY ==
[2022-11-14 11:34] LABS: CA-125 9 U/mL (<35)
== END 2022-11-12 13:02 | disposition home or self-care (01) ==
LOC: HO.LAB 13:01
PROVIDERS: PCP Internal Medicine; Visit Provider Obstetrics & Gynecology
DX: R31.29 Other microscopic hematuria (principal); N83.299 Other ovarian cyst, unspecified side
CPT/HCPCS: 36415; 86304; 87086; 87088; 87186

== ENCOUNTER 2023-07-08 12:41 | Outpatient (AMB) | payer OTHER, SELFPAY ==
--- NOTE | 2023-07-08 12:43 | MHC.PC.OV ---
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 Accompanied by: Self / Same As Patient Allergies No Known Allergies Allergy (Verified 07/08/23 12:52) Medication List - Last Reconciled 07/08/23 by Tomasa Oro MD albuterol sulfate 90 mcg/actuation (Ventolin HFA) 1 inh inhalation QID PRN lnawycwecc-wcrjlqpllfdbe-kliu 50-325-40 mg 1 tab PO Q6H PRN cholecalciferol (vitamin D3) 25 mcg PO DAILY 90 days cyclobenzaprine 10 mg PO BEDTIME PRN escitalopram oxalate 5 mg PO DAILY gabapentin 300 mg PO TID 30 days hydrochlorothiazide 25 mg PO DAILY 90 days lidocaine 5% 1 patch topical DAILY PRN losartan 100 mg PO DAILY 90 days meclizine 12.5 mg PO TID PRN 30 days mecobalamin (vitamin B12) mcg PO meloxicam 15 mg PO DAILY nitrofurantoin monohyd/m-cryst 100 mg (Macrobid) 100 mg PO BID 5 days omeprazole 20 mg PO DAILY 90 days oxycodone 5 mg PO BID PRN 30 days topiramate 25 mg PO BID 90 days Tobacco use date assessed: 10/21/22 HPI HPI Comments History of Present Illness Details This is a 47-year-old female with morbid obesity and mild major depression that comes for her physical exam. Last mammogram was a year ago. Has never had a colonoscopy and there is no family history of colon cancer. I will order a Cologuard for her. As per patient had a Pap smear less than 2 years ago and he was normal. No chest pain or shortness of breath. She declines weight loss surgery and was advised to diet and exercise for her BMI to decrease from 47.4 to 30. Depression has been stable with escitalopram. Compliant with medications including losartan and hydrochlorothiazide and still has elevated blood pressure. I will add amlodipine. Blood pressure will be recheck in 3 weeks by nurse navigator. Blood pressure goal is equal or less than 130/80. Still has severe persistent migraines and currently is not seen any neurologist. Will be referred to neurology. Also complains of diffuse joint pain more prominent in right shoulder and right elbow and will be referred to [facility] were she used to go. [facility] Medical History (Updated 07/08/23 @ 13:08 by Tomasa Oro MD) Discoloration of skin Nodule of skin of right lower leg Mild major depression, single episode Right leg pain Neck pain B12 deficiency Muscle cramps Obesity Migraines GERD (gastroesophageal reflux disease) Hypovitaminosis D Surgical History History of tubal ligation History of section Family History (Updated 07/08/23 @ 12:56 by Tomasa Oro MD) Father Pure hypercholesterolemia Mother Diabetes Hypertension Maternal Grandmother Uterine cancer Diabetes Maternal Aunt Breast cancer Hypertension Diabetes Family/Other FH: mental illness Maternal Uncle Developmental delay, moderate Daughter Lymphoma Housing: Apartment Alcohol intake: never Patient Tobacco Use Status: Former Tobacco user e-Cigarette/Vaping Use: Never Used Second Hand Smoke Exposure: No service: No Current occupational status: unemployed Cognitive needs: No Hearing needs: No Vision needs: Yes Female Reproductive History Menstrual Age of Menarche: 8 Questionnaire Thrive Questionnaire Date Thrive assessed: 10/21/22 FLORA-7 AMB Questionnaire FLORA-7 Date FLORA - 7 assessed: 10/21/22 Source: Developed by Drs. Sg Negron, Chela Novoa, Benja Saenz and colleagues, with an educational alfonzo from [employer]. Review of Systems Const All systems reviewed & are unremarkable except as noted in HPI and below Eyes Reports no additional complaints, Denies change in vision and Denies other visual disturbances Card Denies chest pain at rest, Denies chest pain with activity, Denies edema, Denies irregular heart rhythm, Denies claudication, Denies dyspnea, Denies dyspnea on exertion, Denies orthopnea, Denies paroxysmal nocturnal dyspnea and Denies slow heart rate Resp Denies cough, Denies dyspnea and Denies dyspnea on exertion GI Denies abdominal pain, Denies change in bowel habits, Denies excessive flatus, Denies nausea and Denies vomiting Denies urinary incontinence, Denies urinary hesitancy and Denies urinary urgency Musc Denies abnormal gait, Denies atrophy, Denies deformity, Reports arthralgias and Denies limited range of motion Skin/Breast Denies bleeding lesions, Denies changing lesions and Denies rash Neuro Denies abnormal gait, Denies behavioral changes, Denies confusion and Denies lack of coordination Psych Denies behavioral changes and Denies confusion Physical exam (Primary Care) Vital Signs: Last Vital Signs Pulse 88 07/08/23 12:44 BP 170/80 H 07/08/23 12:44 Pulse Ox 98 07/08/23 12:44 Oxygen Delivery Method Room Air 07/08/23 12:44 BMI result Body Mass Index 47.4 Tobacco/Smoking Status: Tobacco use Status Tobacco use date assessed 10/21/22 07/08/23 12:48 Patient Tobacco Use Status Former Tobacco user 07/08/23 12:48 e-Cigarette/Vaping Use Never Used 07/08/23 12:48 Thrive Assessment: Date of Thrive Assessment Date Thrive assessed 10/21/22 07/08/23 12:48 Const General: No confusion Orientation/consciousness: patient oriented x3 and No confusion HENMT Head: Yes normal to inspection, Yes normocephalic and Yes atraumatic Ears: external ears normal Eyes General: appearance normal, both eyes and all related structures Eyelids: Yes eyelids normal Conjunctivae: conjunctivae normal Neck Neck: Yes normal visual inspection and Yes supple Resp Effort & Inspection: normal respiratory effort Auscultation: clear to auscultation bilaterally Cardio Jugular venous distension: no JVD Rate: regular rate Rhythm: regular rhythm Heart sounds: S1 normal heart sound present and S2 normal heart sound present GI Inspection: Yes normal to inspection Palpation (GI): Soft to palpation and nontender Auscultation: normal bowel sounds Skin General skin exam: no rashes or lesions noted Neuro General: patient oriented x3, no focal motor deficits and No confusion Extrem General: Yes full ROM Psych Appearance: grossly normal Office Procedures Flu Questionnaire Does the patient have a severe egg allergy?: No Immunizations flu vacc [id number] 6mos up(PF) 60 mcg(15 mcgx4)/0.5 mL IM syringe Performing Provider: Tomasa Oro MD [facility] Documented (not given) by: BIMAL Kline on 07/08/23 12:49 Reason Not Given: Patient Refused Assessment and Plan Assessment & Plan (1) Physical exam: Code(s): Z00.00 - Encounter for general adult medical examination without abnormal findings Plan: Repeat in a year. (2) Morbid obesity: Code(s): E66.01 - Morbid (severe) obesity due to excess calories Plan: Start diet and exercise. BMI goal is less than 30. (3) Mild major depression, single episode: Code(s): F32.0 - Major depressive disorder, single episode, mild Plan: Continue escitalopram. Orders: Orders MM screening mammo BI Today Z12.31 - Encounter for screening mammogram for malignant neoplasm of breast Comprehensive [place]. Panel Fast Today I10 - Essential (primary) hypertension Magnesium Today R25.2 - Cramp and spasm Complete Blood Count Auto Diff Today G43.009 - Migraine without aura, not intractable, without status migrainosus Influenza [id number] Immunization Today Z23 - Encounter for immunization Lipid Panel Today I10 - Essential (primary) hypertension Vitamin B12 and Folate Today E53.8 - Deficiency of other specified B group vitamins Vitamin D 25-OH Total Today E55.9 - Vitamin D deficiency, unspecified Referrals Neurology Referral G43.009 - Migraine without aura, not intractable, without status migrainosus Cologuard Test Z12.11 - Encounter for screening for malignant neoplasm of colon, Z12.12 - Encounter for screening for malignant neoplasm of rectum Pain Management Referral M25.50 - Pain in unspecified joint Medications: New amlodipine 5 mg PO DAILY 90 days 90 tabs 0RF I10 - Essential (primary) hypertension Coding Level of Care Code Est Pt Prev Care 40-64y([id number]) Diagnoses Physical exam Z00.00 Morbid obesity E66.01 Mild major depression, single episode F32.0 Time Spent (min) 33
[2023-07-08 12:44] VITALS: BP 170/80; PULSE 88; O2SAT 98; BMI 47.4
[2023-07-08 13:11] VITALS: BP 170/80
== END 2023-07-08 13:06 | disposition home or self-care (01) ==
PROVIDERS: Visit Provider Internal Medicine
DX: Z00.00 Encounter for general adult medical examination without abnormal findings (principal); E66.01 Morbid (severe) obesity due to excess calories; F32.0 Major depressive disorder, single episode, mild; Z68.42 Body mass index [BMI] 45.0-49.9, adult
CPT/HCPCS: 99396

== ENCOUNTER 2023-07-18 09:09 | Emergency (ER) | payer OTHER, SELFPAY ==
[2023-07-18 09:18] VITALS: BP 140/80; O2SAT 100
[2023-07-18 09:27] VITALS: BP 115/57; PULSE 75; RESP 16; TEMP 36.6; O2SAT 100; BMI 40.4
--- NOTE | 2023-07-18 09:34 | ED_ITS ---
HPI - General Adult General Chief complaint: General Medical Stated complaint: SYNCOPE Time Seen by Provider: 07/18/23 09:34 Source: patient and family (Daughter who is fluent in both [place] and [place]) Mode of arrival: EMS Limitations: language barrier ([place] speaking only, director of placement used.) History of Present Illness HPI narrative: 47-year-old female who presents emergency department for evaluation of a syncopal episode. The patient found out about the of her aunt who lives in [place]. According to the patient's daughter, the patient then began to hyperventilate and passed out. Patient states that she remembers developed a headache which is consistent with her migraine headache, she developed cramping sensation in her arms, she felt felt hot and was having difficulty keeping her eyes open. She then apparently had a syncopal episode. The daughter called an ambulance the patient brought to emergency department. At the time my evaluation the patient states she is having a headache which is consistent with a migraine headache. She states that she is feeling fine and she does not want any further evaluation and she wants to go home. She knows that she was upset about aunt's and she believes that is what caused her to pass out. Related Data Previous Rx's Medication Instructions Recorded cholecalciferol (vitamin D3) 25 25 mcg PO DAILY 90 days #90 tabs 05/23/20 mcg (1,000 unit) tablet hydrochlorothiazide 25 mg tablet 25 mg PO DAILY 90 days #90 tabs 03/03/21 escitalopram oxalate 5 mg tablet 5 mg PO DAILY #30 tabs 01/09/22 albuterol sulfate 90 mcg/actuation 1 inh inhalation QID PRN shortness 04/08/22 aerosol inhaler (Ventolin HFA) of breath or wheezing #8.5 grams cyclobenzaprine 10 mg tablet 10 mg PO BEDTIME PRN muscle spasm 06/09/22 #7 tabs lidocaine 5 % topical patch 1 patch topical DAILY PRN pain #15 06/09/22 ea nitrofurantoin 100 mg PO BID 5 days #10 caps 11/12/22 monohydrate/macrocrystals 100 mg capsule (Macrobid) topiramate 25 mg tablet 25 mg PO BID 90 days #180 tabs 12/30/22 meclizine 12.5 mg tablet 12.5 mg PO TID PRN dizziness 30 02/03/23 days #90 tabs omeprazole 20 mg tablet,delayed 20 mg PO DAILY 90 days #90 tabs 05/27/23 release amlodipine 5 mg tablet 5 mg PO DAILY 90 days #90 tabs 07/08/23 ucedlknpne-hremjvjicllaf-ydixnibv 1 tab PO Q6H PRN pain #20 tabs 07/15/23 50 mg-325 mg-40 mg tablet gabapentin 300 mg capsule 300 mg PO TID 30 days #90 caps 07/15/23 losartan 100 mg tablet 100 mg PO DAILY 90 days #90 tabs 07/15/23 mecobalamin (vitamin B12) 5,000 5,000 mcg PO .once a day 30 days 07/15/23 mcg disintegrating tablet #30 tabs meloxicam 15 mg tablet 15 mg PO DAILY #14 tabs 07/15/23 oxycodone 5 mg tablet 5 mg PO BID PRN pain 30 days #60 07/15/23 tabs lorazepam 1 mg tablet (Ativan) 1 mg PO TID PRN anxiety #10 tabs 07/18/23 Allergies Allergy/AdvReac Type Severity Reaction Status Date / Time No Known Allergies Allergy Verified 07/08/23 12:52 Review of Systems Review of Systems: Yes all other systems are reviewed and are negative PMFSH Past Medical History Medical History Discoloration of skin Nodule of skin of right lower leg Mild major depression, single episode Right leg pain Neck pain B12 deficiency Muscle cramps Obesity Migraines GERD (gastroesophageal reflux disease) Hypovitaminosis D Surgical History History of tubal ligation History of section Family History Family History Father Pure hypercholesterolemia Mother Diabetes Hypertension Maternal Grandmother Uterine cancer Diabetes Maternal Aunt Breast cancer Hypertension Diabetes Family/Other FH: mental illness Maternal Uncle Developmental delay, moderate Daughter Lymphoma Social History Social History Housing: Apartment Alcohol intake: never Patient Tobacco Use Status: Former Tobacco user e-Cigarette/Vaping Use: Never Used Second Hand Smoke Exposure: No Advance Directives: No Advance Directives Information Provided: Yes service: No Current occupational status: unemployed Cognitive needs: No Hearing needs: No Vision needs: Yes Physical Exam ED Vital Signs: Vital Signs - 24 hr 07/18/23 09:27 Temperature 97.8 F Pulse Rate 75 Respiratory Rate 16 Blood Pressure 115/57 L Pulse Oximetry 100 Oxygen Delivery Method Room Air BMI result Body Mass Index 40.4 Vital signs were normal Exam: General: Awake, alert in no distress Head: Normocephalic, atraumatic EENT: PERRL, Lids normal, sclera normal, conjunctiva normal, nose normal , ears normal, throat without erythema or exudates Neck: Supple, no adenopathy, no trachea midline or C-spine tenderness Lung: breath sounds symmetric, no wheezing, rales or rhonchi Chest: symmetric movement, nontender Heart: regular rate and rhythm, normal S1, S2 no murmurs or rubs Abdomen: soft, non-tender, nondistended, normal bowel sounds Back: no vertebral tenderness, no CVAT Extremities: no deformities, moves all extremities symmetrically Skin: no rashes, no lesion, normal color and warmth Neuro: Awake, alert, oriented, normal speech, cranial nerves intact, moves all extremities symmetrically Psych: Pleasant, cooperative Medical Decision Making Medical Decision Making MDM Narrative: 47-year-old female history of hypertension, GERD, migraines, obesity, depression who received bad news about her aunt's in [place] which then caused her to have a syncopal episode. Patient also states that she has a migraine headache which is consistent with her usual migraine. At the time of evaluation, she states she knows that she passed out secondary to the bed news that she got and she does not want any further treatment. She would like to go home and take her migraine medications. Patient's vital signs were normal. Patient's exam was otherwise unremarkable. Given the circumstances and symptoms preceded her syncopal episode, patient most likely had an acute anxiety attack with hyperventilation syndrome therefore do not think that she needs any further testing. I am concerned that she may have another syncopal episode secondary to anxiety therefore did prescribe Ativan 1 mg t.i.d. as needed for anxiety. Given printed and verbal instructions and discharged home. Differential Diagnosis Differential Diagnoses: The differential diagnosis associated with the presentation includes Differential diagnosis includes was not limited to myocardial infarction, myocardial ischemia, arrhythmia, takotsubo cardiomyopathy, migraine headache, anxiety attack, hyper ventilation syndrome. Independent Historian Clinical information obtained from an independent historian. History obtained from or confirmed by: Other (Daughter, Kiki) Chronic Conditions Patient?s care impacted by: Hypertension Discharge Plan Discharge Clinical Impression: Anxiety attack, Acute hyperventilation syndrome Patient Disposition: Home, Self-Care Instructions: Hyperventilation (ED) Additional Instructions: Your symptoms were triggered by anxiety and most likely caused due to hyperventilate which then may have caused her to pass out The stressful news most likely triggered a migraine injuries well. When you go home take your migraine medications as prescribed. Make sure you take all of your other medications as prescribed as well. Take Ativan 1 mg pills, 1 pill every 6 hours as needed for anxiety. This med ication will make you sleepy, do not drive or work while taking this medication. You should try taking 1 of these medications before you go to [place]. This medication can be addicting, if your concerned about addiction you can ask the pharmacist for less medications or do not get the prescription filled. Follow-up with your doctor in 2 days. Please return to the emergency department if your symptoms get worse or if you develop any symptoms that are concerning to you. Prescriptions: New lorazepam [Ativan] 1 mg tablet 1 mg PO TID PRN (Reason: anxiety) Qty: 10 0RF Rx Instructions: Patient may request partial fill No Action cholecalciferol (vitamin D3) 25 mcg (1,000 unit) tablet 25 mcg PO DAILY 90 Days Qty: 90 3RF hydrochlorothiazide 25 mg tablet 25 mg PO DAILY 90 Days Qty: 90 3RF topiramate 25 mg tablet 25 mg PO BID 90 Days Qty: 180 1RF meclizine 12.5 mg tablet 12.5 mg PO TID PRN (Reason: dizziness) 30 Days Qty: 90 1RF omeprazole 20 mg tablet,delayed release (DR/EC) 20 mg PO DAILY 90 Days Qty: 90 3RF Rx Instructions: 30 before morning meal viwsyafcrb-cblhwqtkihbpy-ylaz 50-325-40 mg tablet 1 tab PO Q6H PRN (Reason: pain) Qty: 20 0RF Hold Instructions: Doctor's Order gabapentin 300 mg capsule 300 mg PO TID 30 Days Qty: 90 0RF losartan 100 mg tablet 100 mg PO DAILY 90 Days Qty: 90 1RF mecobalamin (vitamin B12) 5,000 mcg tablet,disintegrating 5,000 mcg PO .once a day 30 Days Qty: 30 1RF meloxicam 15 mg tablet 15 mg PO DAILY Qty: 14 0RF oxycodone 5 mg tablet 5 mg PO BID PRN (Reason: pain) 30 Days Qty: 60 0RF cyclobenzaprine 10 mg tablet 10 mg PO BEDTIME PRN (Reason: muscle spasm) Qty: 7 0RF lidocaine 5 % adhesive patch,medicated 1 patch topical DAILY PRN (Reason: pain) Qty: 15 0RF Rx Instructions: leave on most painful area for up to 12 hrs escitalopram oxalate 5 mg tablet 5 mg PO DAILY Qty: 30 1RF albuterol sulfate [Ventolin HFA] 90 mcg/actuation HFA aerosol inhaler 1 inh inhalation QID PRN (Reason: shortness of breath or wheezing) Qty: 8.5 1RF amlodipine 5 mg tablet 5 mg PO DAILY 90 Days Qty: 90 0RF nitrofurantoin monohyd/m-cryst [Macrobid] 100 mg capsule 100 mg PO BID 5 Days Qty: 10 0RF Interventions: ED Discharge Assessment Last Done: 07/18/23 10:44 Discharge Date/Time: 07/18/23 10:44
== END 2023-07-18 10:44 | disposition home or self-care (01) ==
PROVIDERS: Emergency Provider Emergency Medicine Emergency Medical Services; PCP Internal Medicine
DX: I16.0 Hypertensive urgency (principal); F41.1 Generalized anxiety disorder; F43.0 Acute stress reaction
CPT/HCPCS: 99283; 99284

== ENCOUNTER 2023-09-29 15:48 | Emergency (ER) | payer OTHER, SELFPAY ==
[2023-09-29 16:00] VITALS: BP 181/85; PULSE 75; RESP 18; TEMP 36.4; O2SAT 99; BMI 47.8
--- NOTE | 2023-09-29 16:02 | ED.GENADULT ---
HPI - General Adult General Chief complaint: Eye Problems Stated complaint: sent for 's vision issues ?stroke Source: patient and interpreter deaf Mode of arrival: ambulatory Limitations: language barrier History of Present Illness HPI narrative: Patient is a 48 year old assigned female at with a history of migraines and PAD presenting to the emergency department today with black spots in her eyes. Patient states that in 2021 she began to have black spots in her eyes. Patient states that she has been following up with her doctor and an eye doctor for this and today at an eye appointment, she was told to come to the ER because her eye pressures were high. Patient denies any dizziness, lightheadedness, abdominal pain, nausea, vomiting, fever, chills, blurry vision, double vision, loss of vision, chest pain, difficulty breathing, shortness of breath, back pain, night sweats, pain with urination, increased urinary frequency, increased urinary urgency, blood in her urine or stool, syncope or a near syncopal episode, recent trauma or falls, bowel incontinence, bladder incontinence, bowel retention, bladder retention, or any other complaints at this time. Relieving factors: none Exacerbating factors: none Associated symptoms: denies other symptoms Treatments prior to arrival: none Related Data Previous Rx's Medication Instructions Recorded cholecalciferol (vitamin D3) 25 25 mcg PO DAILY 90 days #90 tabs 05/23/20 mcg (1,000 unit) tablet hydrochlorothiazide 25 mg tablet 25 mg PO DAILY 90 days #90 tabs 03/03/21 escitalopram oxalate 5 mg tablet 5 mg PO DAILY #30 tabs 01/09/22 albuterol sulfate 90 mcg/actuation 1 inh inhalation QID PRN shortness 04/08/22 aerosol inhaler (Ventolin HFA) of breath or wheezing #8.5 grams cyclobenzaprine 10 mg tablet 10 mg PO BEDTIME PRN muscle spasm 06/09/22 #7 tabs lidocaine 5 % topical patch 1 patch topical DAILY PRN pain #15 06/09/22 ea nitrofurantoin 100 mg PO BID 5 days #10 caps 11/12/22 monohydrate/macrocrystals 100 mg capsule (Macrobid) meclizine 12.5 mg tablet 12.5 mg PO TID PRN dizziness 30 02/03/23 days #90 tabs amlodipine 5 mg tablet 5 mg PO DAILY 90 days #90 tabs 07/08/23 etdnmoqdhn-fzmhfxnaauuyx-bedxfsyi 1 tab PO Q6H PRN pain #20 tabs 07/15/23 50 mg-325 mg-40 mg tablet gabapentin 300 mg capsule 300 mg PO TID 30 days #90 caps 07/15/23 losartan 100 mg tablet 100 mg PO DAILY 90 days #90 tabs 07/15/23 lorazepam 1 mg tablet (Ativan) 1 mg PO TID PRN anxiety #10 tabs 07/18/23 nebulizers (AeroEclipse II #1 ea 08/22/23 Nebulizer) mecobalamin (vitamin B12) 5,000 5,000 mcg PO .once a day 30 days 09/30/23 mcg disintegrating tablet #30 tabs meloxicam 15 mg tablet 15 mg PO DAILY #14 tabs 09/30/23 omeprazole 20 mg tablet,delayed 20 mg PO DAILY 90 days #90 tabs 09/30/23 release oxycodone 5 mg tablet 5 mg PO BID PRN pain 30 days #60 09/30/23 tabs topiramate 25 mg tablet 25 mg PO BID 90 days #180 tabs 09/30/23 Allergies Allergy/AdvReac Type Severity Reaction Status Date / Time No Known Allergies Allergy Verified 07/08/23 12:52 Review of Systems Constitutional: Constitutional: Reports no additional constitutional complaints, Denies chills, Denies fever(s) and Denies night sweats Eyes: Eyes: Reports no additional eye complaints, Denies blurry vision, Denies change in vision, Denies diplopia, Denies eye discharge, Denies loss of vision, Reports other visual disturbances (black spots in vision) and Denies eye pain ENT: Denies dizziness Cardiovascular: Cardiovascular: Reports no additional cardiovascular complaints, Denies chest pain, Denies lightheadedness, Denies Loss of Consciousness and Denies dyspnea Respiratory: Respiratory: Reports no additional respiratory complaints and Denies dyspnea Gastrointestinal: Gastrointestinal: Reports no additional gastrointestinal complaints, Denies abdominal pain, Denies melena, Denies hematochezia, Denies change in bowel habits and Denies change in stool character Genitourinary: Genitourinary: Denies hematuria, Denies urinary frequency, Denies dysuria, Denies urinary incontinence, Denies urinary hesitancy and Denies urinary urgency Musculoskeletal: Musculoskeletal: Reports no additional musculoskeletal complaints, Denies numbness and Denies tingling Neurologic: Denies dizziness, Denies loss of vision, Denies numbness and Denies tingling Psychiatric: Psychiatric: Reports no additional psychiatric complaints Endocrine: Endocrine: Reports no additional endocrine complaints Hematologic/Lymphatic: Hematologic/Lymphatic: Reports no additional hematologic/lymphatic complaints Allergic/Immunologic: Allergic/Immunologic: Reports no additional allergic/immunologic complaints PMFSH Past Medical History Attestation statement: The following information was validated with the patient. Source: old records reviewed and nursing notes reviewed Medical History Discoloration of skin Nodule of skin of right lower leg Mild major depression, single episode Right leg pain Neck pain B12 deficiency Muscle cramps Obesity Migraines GERD (gastroesophageal reflux disease) Hypovitaminosis D Surgical History History of tubal ligation History of section Family History Family History Father Pure hypercholesterolemia Mother Diabetes Hypertension Maternal Grandmother Uterine cancer Diabetes Maternal Aunt Breast cancer Hypertension Diabetes Family/Other FH: mental illness Maternal Uncle Developmental delay, moderate Daughter Lymphoma Social History Social History Housing: Apartment Alcohol intake: never Patient Tobacco Use Status: Former Tobacco user e-Cigarette/Vaping Use: Never Used Second Hand Smoke Exposure: No Advance Directives: No Advance Directives Information Provided: No service: No Current occupational status: unemployed Cognitive needs: No Hearing needs: No Vision needs: Yes Physical Exam ED Vital Signs: Vital Signs - 24 hr 09/29/23 16:00 Temperature 97.5 F Pulse Rate 75 Respiratory Rate 18 Blood Pressure 181/85 H Pulse Oximetry 99 Oxygen Delivery Method Room Air BMI result Body Mass Index 47.8 Const General: cooperative, no acute distress, alert and awake Nutritional Appearance: well nourished Orientation/consciousness: patient oriented x3 Limitations: no limitations HENMT Head: Yes normal to inspection and Yes atraumatic Ears: hearing grossly normal bilaterally and external ears normal General nose exam: Normal external nose present, no nasal discharge noted and no epistaxis Face and sinus: Yes normal facial exam, No abrasion and No laceration Mouth: Normal oral and palatal mucosa present, no drooling and no muffled voice Eyes General: appearance normal, both eyes and all related structures Periorbital: periorbital findings normal Eyelids: Yes eyelids normal Conjunctivae: conjunctivae normal Pupils: Equal, round and reactive pupils present EOM: EOMs intact bilaterally Neck Neck: Yes normal visual inspection, Yes full ROM and Yes no lymphadenopathy Chest Chest palpation & inspection: normal inspection of the chest Resp Effort & Inspection: normal respiratory effort and able to speak in complete sentences GI Inspection: Yes normal to inspection Neuro General: patient oriented x3 and moves all extremities Cranial nerves: Yes Equal, round and reactive pupils present Cognition (Neuro): normal cognition Motor exam (neuro): 5/5 motor strength present throughout Sensory Exam: Normal double simultaneous stimulation for sensation Coordination: hjnhjg-jo-hexh test normal Extrem General: Yes normal to inspection, Yes full ROM and Yes capillary refill normal Psych Appearance: grossly normal Mental Status: mental status grossly normal Affect: normal affect Attitude: cooperative Thought process: Normal thought process present Thought content: Normal thought content present Insight: Good insight present (Psych) Course Course Course Narrative: RME performed by Sussy Sparks PA-C. Patient is a 48 year old assigned female at presenting to the emergency department with worsening vision. Was seen at [facility] today and they diagnosed her with Amaurosis Fugax. They recommended she come to the ER immediately for stroke work up. Detailed physical exam and review of systems are deferred to the digital production operator. Labs and imaging ordered. Charge nurse made aware of patient. Medical Decision Making Medical Decision Making MDM Narrative: Patient is a 48 year old assigned female at with a history of migraines presenting to the emergency department today with black spots in her vision. Patient's limited physical exam performed in triage was unremarkable. Patient's blood work was unremarkable. Patient's urine showed no acute process. Patient's EKG was unremarkable. Patient left the department before myself or any of the other emergency department clinicians could review or explain physical exam findings, test results, need or lack there of for additional testing, treatment options, or a treatment plan. Differential Diagnosis Differential Diagnoses: The differential diagnosis associated with the presentation includes CVA Stroke Glaucoma Acute angle closure glaucoma Admission/Observation Consideration of admission/observation: Escalation of care including admission/observation considered Patient would have been admitted to the hospital had her work up had any findings where hospital admission was appropriate, her clinical presentation warranted hospital admission, and she hadn't left the department. Lab Data [facility] Lab Attestation statement: I reviewed the patient's lab results. My interpretation of these results are in the [facility] Rationale portion of this note. 09/29/23 16:22 09/29/23 16:22 Labs: Lab Results 09/29/23 Range/Units 16:22 WBC 13.2 H (4.8-10.8) X10*3/uL RBC 4.83 (4.20-5.50) X10*6/uL Hgb 13.3 (12.0-16.0) g/dl Hct 39.6 (37.0-47.0) % MCV 82.0 (80.0-98.0) fL MCH 27.5 (27.0-33.0) pg MCHC 33.6 (31.0-35.0) g/dl RDW 14.6 (11.0-16.0) % Plt Count 289 (160-400) X10*3/uL MPV 10.6 (9.4-12.3) fL Immature Gran % (Auto) 0.5 H (0.0-0.4) % Neut % (Auto) 61.8 (45-73) % Lymph % (Auto) 32.8 (20-40) % [place] % (Auto) 3.6 (2-11) % Eos % (Auto) 0.8 (0-4) % Baso % (Auto) 0.5 (0-2) % Lymph # (Auto) 4.3 (1.2-4.9) X10*3/uL [place] # (Auto) 0.5 (0.1-1.2) X10*3/uL Eos # (Auto) 0.1 (0.0-0.4) X10*3/uL Baso # (Auto) 0.1 (0.0-0.2) X10*3/uL Abs Immat Gran (auto) 0.07 H (0.00-0.03) X10*3/uL Absolute Neuts (auto) 8.1 (2.0-8.3) x10*3/uL Absolute Nucleated RBC 0.000 (0.0-0.012) X10*3/uL Nucleated RBC % (auto) 0.0 (0.0-0.2) /100WBC PT 13.1 (11.1-13.3) SEC INR 1.1 (0.9-1.1) APTT 37.5 H (26.0-36.8) SEC Sodium 141 (135-145) mmol/L Potassium 3.7 (3.3-5.1) mmol/L Chloride 110 H (96-108) mmol/L Carbon Dioxide 24 (22-29) mmol/L Anion Gap 11 L (12-20) BUN 18 H (9-16) mg/dL Creatinine 0.77 (0.5-1.4) mg/dL Estim Creat Clear Calc 106.8 Estimated GFR > 60 Random Glucose 78 (60-115) mg/dL Calcium 9.4 D (8.4-10.2) mg/dL Magnesium 2.2 (1.6-2.6) mg/dL Total Bilirubin 0.2 (0.0-1.0) mg/dL AST 16 (5-31) U/L ALT 13 (0-31) U/L Alkaline Phosphatase 117 (39-117) U/L Troponin I High Sens < 2.7 (<3.5-17.0) ng/L Total Protein 7.6 (6.5-8.0) g/dL Albumin 4.3 (3.5-5.0) g/dL Triglycerides 259 H (<150) mg/dL Cholesterol 194 (<200) mg/dL LDL Cholesterol, Calc 74 (<100) mg/dL HDL Cholesterol 69 (>40) mg/dL Urine Color Yellow Urine Appearance Cloudy Urine pH 5.5 (5.0-9.0) Ur Specific [place] 1.025 (1.005-1.025) Urine Protein Trace (Neg-Trace) mg/dL Urine Glucose (UA) Negative (Negative) mg/dL Urine Ketones Negative (Negative) mg/dL Urine Blood Large (3+) H (Negative) Urine Nitrite Negative (Negative) Ur Leukocyte Esterase Trace H (Negative) Urine RBC >20 H (0-2) /HPF Urine WBC 0-5 (0-5) /HPF Ur Squamous Epith Cells 6-10 (0-2) /HPF Urine Bacteria Trace (None Seen) Hyaline Casts 0-2 (0-2) /LPF Independent Interpretation I performed an independent interpretation of an: EKG Interpretation: Vent. Rate: 074 BPM Atrial Rate: 074 BPM P-R Int: 142 ms QRS Dur: 136 ms QT Int: 442 ms P-R-T Axes: 042 004 005 degrees QTc Int: 490 ms Normal sinus rhythm Right bundle branch block Abnormal ECG When compared with ECG of 22-FEB-2021 21:56, No significant change was found DD/ 1610 Discharge Plan Discharge Clinical Impression: Alteration in vision Patient Disposition: Left W/O Completing Treatment Prescriptions: No Action cholecalciferol (vitamin D3) 25 mcg (1,000 unit) tablet 25 mcg PO DAILY 90 Days Qty: 90 3RF hydrochlorothiazide 25 mg tablet 25 mg PO DAILY 90 Days Qty: 90 3RF meclizine 12.5 mg tablet 12.5 mg PO TID PRN (Reason: dizziness) 30 Days Qty: 90 1RF uuchursbsn-hrakvjabaxxlz-jprl 50-325-40 mg tablet 1 tab PO Q6H PRN (Reason: pain) Qty: 20 0RF Hold Instructions: Doctor's Order gabapentin 300 mg capsule 300 mg PO TID 30 Days Qty: 90 0RF losartan 100 mg tablet 100 mg PO DAILY 90 Days Qty: 90 1RF (DME) nebulizers [AeroEclipse II Nebulizer] Misc See Rx Instructions .Route Qty: 1 0RF Rx Instructions: As directed topiramate 25 mg tablet 25 mg PO BID 90 Days Qty: 180 1RF oxycodone 5 mg tablet 5 mg PO BID PRN (Reason: pain) 30 Days Qty: 60 0RF omeprazole 20 mg tablet,delayed release (DR/EC) 20 mg PO DAILY 90 Days Qty: 90 3RF Rx Instructions: 30 before morning meal meloxicam 15 mg tablet 15 mg PO DAILY Qty: 14 0RF mecobalamin (vitamin B12) 5,000 mcg tablet,disintegrating 5,000 mcg PO .once a day 30 Days Qty: 30 1RF cyclobenzaprine 10 mg tablet 10 mg PO BEDTIME PRN (Reason: muscle spasm) Qty: 7 0RF lidocaine 5 % adhesive patch,medicated 1 patch topical DAILY PRN (Reason: pain) Qty: 15 0RF Rx Instructions: leave on most painful area for up to 12 hrs lorazepam [Ativan] 1 mg tablet 1 mg PO TID PRN (Reason: anxiety) Qty: 10 0RF Rx Instructions: Patient may request partial fill escitalopram oxalate 5 mg tablet 5 mg PO DAILY Qty: 30 1RF albuterol sulfate [Ventolin HFA] 90 mcg/actuation HFA aerosol inhaler 1 inh inhalation QID PRN (Reason: shortness of breath or wheezing) Qty: 8.5 1RF amlodipine 5 mg tablet 5 mg PO DAILY 90 Days Qty: 90 0RF nitrofurantoin monohyd/m-cryst [Macrobid] 100 mg capsule 100 mg PO BID 5 Days Qty: 10 0RF Discharge Date/Time: 09/29/23 23:05
--- NOTE | 2023-09-29 16:04 | ECG_ITS ---
Test Reason : DIZZINESS Blood Pressure : / mmHG Vent. Rate : 074 BPM Atrial Rate : 074 BPM P-R Int : 142 ms QRS Dur : 136 ms QT Int : 442 ms P-R-T Axes : 042 004 005 degrees QTc Int : 490 ms Normal sinus rhythm Right bundle branch block Abnormal ECG When compared with ECG of 22-FEB-2021 21:56, No significant change was found Referred By: Sussy Sparks Electronically Signed By:Russel Mendes
[2023-09-29 16:31] LABS: MANUAL DIFF FLAG NO
[2023-09-29 16:34] LABS: Basophils Absolute Auto 0.1 X10*3/uL (0.0-0.2); Basophils Percent Auto 0.5 % (0-2); Eosinophils Absolute Auto 0.1 X10*3/uL (0.0-0.4); Eosinophils Percent Auto 0.8 % (0-4); Hematocrit 39.6 % (37.0-47.0); Hemoglobin 13.3 g/dl (12.0-16.0); Imm Gran Abs Auto 0.07 X10*3/uL (0.00-0.03); Imm Gran Pct Auto 0.5 % (0.0-0.4); Lymphocytes Absolute Auto 4.3 X10*3/uL (1.2-4.9); Lymphocytes Percent Auto 32.8 % (20-40); Mean Corpuscular HGB Conc 33.6 g/dl (31.0-35.0); Mean Corpuscular Hemoglobin 27.5 pg (27.0-33.0); Mean Platelet Volume 10.6 fL (9.4-12.3); Monocytes Absolute Auto 0.5 X10*3/uL (0.1-1.2); Monocytes Percent Auto 3.6 % (2-11); Neutrophils Absolute Auto 8.1 x10*3/uL (2.0-8.3); Neutrophils Percent Auto 61.8 % (45-73); Platelet Count 289 X10*3/uL (160-400); Red Blood Count 4.83 X10*6/uL (4.20-5.50); Red Cell Distribution Width 14.6 % (11.0-16.0); White Blood Count 13.2 X10*3/uL (4.8-10.8)
[2023-09-29 16:39] LABS: Appearance Urine Cloudy; Color Urine Yellow; Glucose Urine UA Negative (Negative); Leukocyte Esterase Urine Trace (Negative); Nitrite Urine Negative (Negative); PH 5.5 (5.0-9.0); Specific Gravity - Urine 1.025 (1.005-1.025); UMIC TRIGGER UACC YES; Urine Blood Large (3+) (Negative); Urine Ketones Negative (Negative); Urine Protein Trace mg/dL (Neg-Trace)
[2023-09-29 16:45] LABS: Bacteria Urine Trace (None Seen); Hyaline Casts Urine 0-2 /LPF (0-2); RBC Urine >20 /HPF (0-2); WBC Urine 0-5 /HPF (0-5)
[2023-09-29 16:47] LABS: INTERNATIONAL NORM RATIO 1.1 (0.9-1.1); Prothrombin Time 13.1 SEC (11.1-13.3)
[2023-09-29 16:49] LABS: Partial Thromboplastin Time 37.5 SEC (26.0-36.8)
[2023-09-29 16:51] LABS: Alanine Aminotransferase 13 U/L (0-31); Albumin Level 4.3 g/dL (3.5-5.0); Alkaline Phosphatase 117 U/L (39-117); Anion Gap 11 (12-20); Aspartate Amino Transferase 16 U/L (5-31); Bilirubin Total 0.2 mg/dL (0.0-1.0); Blood Urea Nitrogen 18 mg/dL (9-16); Calcium 9.4 mg/dL (8.4-10.2); Carbon Dioxide 24 mmol/L (22-29); Chloride 110 mmol/L (96-108); Cholesterol 194 mg/dL (<200); Creatinine Clr Calc Pharmacy 106.8; Estimated Glomerular Filt Rate > 60; Glucose Random 78 mg/dL (60-115); HDL Cholesterol 69 mg/dL (>40); LDL Cholesterol Calculated 74 mg/dL (<100); Magnesium 2.2 mg/dL (1.6-2.6); Potassium 3.7 mmol/L (3.3-5.1); Sodium 141 mmol/L (135-145); Total Protein 7.6 g/dL (6.5-8.0); Triglycerides 259 mg/dL (<150)
[2023-09-29 17:04] LABS: Troponin-I High Sensitivity < 2.7 ng/L (<3.5-17.0)
--- NOTE | 2023-09-29 22:45 | PC.NURSE ---
NO ANSWER X 2, ATTEMPT AT 22:30 AND 22:45
== END 2023-09-29 23:05 | disposition left against medical advice (07) ==
PROVIDERS: Physician Assistant Medical; Emergency Provider Emergency Medicine; PCP Internal Medicine
DX: H43.393 Other vitreous opacities, bilateral (principal); H54.3 Unqualified visual loss, both eyes; I45.10 Unspecified right bundle-branch block; R42 Dizziness and giddiness; R94.31 Abnormal electrocardiogram [ECG] [EKG]; Z79.899 Other long term (current) drug therapy
CPT/HCPCS: 36415; 80053; 80061; 81001; 83735; 84484; 85025; 85610; 85730; 93005; 99283

== ENCOUNTER → 2023-09-29 16:04 | Outpatient (BNV) | payer OTHER, SELFPAY | PROVIDERS: Emergency Provider Emergency Medicine; PCP Internal Medicine; Visit Provider Internal Medicine Cardiovascular Disease | DX: R94.31 Abnormal electrocardiogram [ECG] [EKG] (principal) | CPT/HCPCS: 93010 ==

== ENCOUNTER 2023-10-29 08:07 | Outpatient (AMB) | payer OTHER, SELFPAY ==
[2023-10-29 08:34] VITALS: BP 150/90; PULSE 74; O2SAT 98; BMI 47.5
--- NOTE | 2023-10-29 08:34 | A.OFFVIS_ITS ---
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 patient has headaches everyday,she feels dizzy all the time with nausea. Allergies No Known Allergies Allergy (Verified 10/29/23 08:37) Medication List - Last Reconciled 10/29/23 by DOMONIQUE Chaudhry albuterol sulfate 90 mcg/actuation (Ventolin HFA) 1 inh inhalation QID PRN amlodipine 5 mg PO DAILY 90 days xnnzqpkgda-ighpasxgpgkfr-urnf 50-325-40 mg 1 tab PO Q6H PRN cholecalciferol (vitamin D3) 25 mcg PO DAILY 90 days cyclobenzaprine 10 mg PO BEDTIME PRN escitalopram oxalate 5 mg PO DAILY gabapentin 300 mg PO TID 30 days hydrochlorothiazide 25 mg PO DAILY 90 days lidocaine 5% 1 patch topical DAILY PRN lorazepam (Ativan) 1 mg PO TID PRN losartan 100 mg PO DAILY 90 days meclizine 12.5 mg PO TID PRN 30 days mecobalamin (vitamin B12) 5,000 mcg PO .once a day 30 days meloxicam 15 mg PO DAILY nebulizers (AeroEclipse II Nebulizer) As directed omeprazole 20 mg PO DAILY 90 days oxycodone 5 mg PO BID PRN 30 days topiramate 25 mg PO BID 90 days HPI HPI Comments History of Present Illness Details Right-handed 48-yr-old female presents for new pt evaluation of headache disorder. Pt started having headaches in her 20s, but they worsened in severity 10-12 yrs ago. In the last 2-3 yrs, she has had new headache symptoms of right eye blurry vision and eye pain with her headaches, and also trailing diplopia w/wo a headache. Denies any preceding injuries or accidents. She was seen initially by Dr Hanson, and then Dr Ayoub until he moved. She has not seen neurology in the past 3yrs. Patient endorses history of: Arthritis, neck pain, joint pain, limited movement, depression, possible bipolar, GERD, hypertension, restlessness, arm and leg cramps, sleep difficulties- snoring, fatigue. Double vision within the last 2-3 years. Pertinent denials include: Patient denies history of anemia, hyperlipidemia, seizures, clotting disorders, constipation nba. Headache questionnaire: Typical headache characteristics: Prodrome symptoms? Unsure Aura? Right eye blurring vision, watery x's a few minutes before headache Pain intensity? Mod-Severe Location, quality, characteristics? Right sided and lee eyes then becomes ho locranial. Pounding and pressure. Associated symptoms? Photophobia, phonophobia, nausea, internal dizziness, fatigue, activity intolerance, brain fog, increased neck pain. Focal weakness, Parethesias, Autonomic s/s? Tingling and increased skin sensitivity in the bilateral face, arms, legs. Both arms feel weak. Postdrome? n/a Triggers? not eating, alcohol, not sleeping well, stress Any positional, valsalva, exertional, sexual activity triggers? aggravated by standing up- increases head pressure, or bending over. Menstrual triggers? yes- irregular menses. Time of day? no specific time. Duration and Frequency? Constant mild headache, becomes more severe 2-3 x's per week, can last if more severe 2-3 days. How does headache impact your life? when severe she cannot do her daily activities Current acute medication use/interventions: Fioricet twice a day. Using oxycodone 5 mg p.r.n. for body pain sometimes headache. Has lorazepam p.r.n. for anxiety Current preventative medication use: Topiramate 25 mg b.i.d. Non-pharmacological interventions: Rest [facility] Medical History Discoloration of skin Nodule of skin of right lower leg Mild major depression, single episode Right leg pain Neck pain B12 deficiency Muscle cramps Obesity Migraines GERD (gastroesophageal reflux disease) Hypovitaminosis D Surgical History History of tubal ligation History of section Family History Father Pure hypercholesterolemia Mother Diabetes Hypertension Maternal Grandmother Uterine cancer Diabetes Maternal Aunt Breast cancer Hypertension Diabetes Family/Other FH: mental illness Maternal Uncle Developmental delay, moderate Daughter Lymphoma Social History Housing: Apartment Alcohol intake: never Patient Tobacco Use Status: Former Tobacco user e-Cigarette/Vaping Use: Never Used Second Hand Smoke Exposure: No service: No Current occupational status: unemployed Cognitive needs: No Hearing needs: No Vision needs: Yes Female Reproductive History Menstrual Age of Menarche: 8 Physical Exam Vital Signs: Last Vital Signs Pulse 74 10/29/23 08:34 BP 150/90 H 10/29/23 08:34 Pulse Ox 98 10/29/23 08:34 Oxygen Delivery Method Room Air 10/29/23 08:34 BMI result Body Mass Index 47.5 Const Orientation/consciousness: patient oriented x3 HEENT Other: No palpable scalp tenderness. Head: Yes normocephalic Resp Effort & Inspection: normal respiratory effort and able to speak in complete sentences Neuro General: patient oriented x3 Cranial nerves: Yes CN's II-XII intact bilaterally (With the exception of mild right facial asymmetry.) Cognition (Neuro): normal cognition Gait exam (Neuro): Normal gait present Motor exam (neuro): 5/5 motor strength present throughout Deep tendon reflexes (DTR's): Right triceps reflex intensity grade: 2+, Left triceps reflex intensity grade: 2+, Rt Biceps (C5, C6): 2+, Left biceps reflex intensity grade: 2+, Right brachioradialis reflex intensity grade: 2+, Left brachioradialis reflex intensity grade: 2+, Right patellar reflex intensity grade: 2+ and Left patellar reflex intensity grade: 2+ Coordination: xvqbkb-of-yaxl test normal, tandem gait normal and Romberg test negative Pupils: Normal pupillary reactivity/response: bilateral Psych Appearance: grossly normal Mental Status: mental status grossly normal Speech and movement: Normal speech and movement present Affect: normal affect Attitude: cooperative Thought process: Normal thought process present Assessment & Plan Assessment & Plan (1) Migraines: Code(s): G43.909 - Migraine, unspecified, not intractable, without status migrainosus Qualifiers: Migraine type: without aura Status migrainosus presence: without status migrainosus Intractability: not intractable Qualified Code(s): G43.009 - Migraine without aura, not intractable, without status migrainosus (2) Diplopia: Code(s): H53.2 - Diplopia (3) Obesity, Class III, BMI 40-49.9 (morbid obesity): Code(s): E66.01 - Morbid (severe) obesity due to excess calories (4) Snoring: Code(s): R06.83 - Snoring (5) Sleep difficulties: Code(s): G47.9 - Sleep disorder, unspecified (6) Fatigue: Code(s): R53.83 - Other fatigue Plan Pt advised to undergo: Brain MRI with without contrast- to assess for secondary etiologies of newer onset headache, vision changes, diplopia, dizziness. Sleep study to assess for sleep apnea. For overall headache management: Optimize good self-care, including but not limited to maintaining a healthy diet,? adequate fluid intake, adequate sleep, and engaging in regular physical activity. For headache triggers: Track headaches, especially after any treatment regimen changes. Migraine [employer] is one of many headache tracking apps. Light sensitivity tips: Patient may try blue light filtering glasses, green glasses, green light therapy. Avoid wearing sunglasses inside. For acute headache treatment: Discussed importance of taking acute medications at the first sign of headache, however stressed importance of avoiding acute medication overuse (especially with combined headache medications). May continue as needed Fioricet for now, goal is to decrease this. Previous acute migraine medication trials: ? Triptan: Sumatriptan was ineffective. Acute migraine medication contraindications: None at this time For headache prevention medication: Preventative medications should be taken routinely as prescribed for best effect, it may take several weeks for full effect to take effect. Less increase topiramate from 25 mg to 50 mg b.i.d.. Resume Emgality, as patient previously had beneficial effect. Previous migraine prevention medication trials:? Amitriptyline: Not tolerated, Propranolol: Ineffective after 2 months, Botox ineffective after 2 cycles. Migraine prevention medication contraindications: Beta-blockers due to asthma diagnosis Pt seen in collaboration w/ Dr Nichol Palacio. Pt to follow-up in 2 months or sooner prn. Quality Reporting (2019) Adult ([facility] 138/10/09/68) Smoking risk assessment performed?: Yes Patient Tobacco Use Status: Former Tobacco user Coding Level of Care Code New Pt Level 4 (11637) Diagnoses Migraine without status migrainosus, not intractable, unspecified migraine type G43.009 Migraine type: without aura Status migrainosus presence: without status migrainosus Intractability: not intractable Diplopia H53.2 Obesity, Class III, BMI 40-49.9 (morbid obesity) E66.01 Snoring R06.83 Sleep difficulties G47.9 Fatigue R53.83
== END 2023-10-29 10:00 | disposition home or self-care (01) ==
PROVIDERS: PCP Internal Medicine; Visit Provider Nurse Practitioner Family
DX: G43.009 Migraine without aura, not intractable, without status migrainosus (principal); H53.2 Diplopia; E66.01 Morbid (severe) obesity due to excess calories; R06.83 Snoring; G47.9 Sleep disorder, unspecified; R53.83 Other fatigue
CPT/HCPCS: 99204

== ENCOUNTER → 2023-10-29 08:07 | Outpatient (BNVA) | payer OTHER, SELFPAY | PROVIDERS: PCP Internal Medicine; Visit Provider Nurse Practitioner Family | DX: G43.009 Migraine without aura, not intractable, without status migrainosus (principal); E66.01 Morbid (severe) obesity due to excess calories; R06.83 Snoring; R53.83 Other fatigue; G47.9 Sleep disorder, unspecified | CPT/HCPCS: 99202 ==

== ENCOUNTER 2023-12-06 08:01 | Outpatient (REF) | payer OTHER, SELFPAY ==
[2023-12-06 08:42] LABS: MANUAL DIFF FLAG NO
[2023-12-06 09:03] LABS: Basophils Absolute Auto 0.1 X10*3/uL (0.0-0.2); Basophils Percent Auto 0.5 % (0-2); Eosinophils Absolute Auto 0.1 X10*3/uL (0.0-0.4); Eosinophils Percent Auto 0.7 % (0-4); Hematocrit 38.2 % (37.0-47.0); Hemoglobin 12.6 g/dl (12.0-16.0); Imm Gran Abs Auto 0.06 X10*3/uL (0.00-0.03); Imm Gran Pct Auto 0.5 % (0.0-0.4); Lymphocytes Absolute Auto 3.7 X10*3/uL (1.2-4.9); Lymphocytes Percent Auto 33.6 % (20-40); Mean Corpuscular Hemoglobin 27.3 pg (27.0-33.0); Mean Corpuscular Volume 82.7 fL (80.0-98.0); Mean Platelet Volume 10.4 fL (9.4-12.3); Monocytes Absolute Auto 0.3 X10*3/uL (0.1-1.2); Neutrophils Absolute Auto 6.7 x10*3/uL (2.0-8.3); Neutrophils Percent Auto 61.7 % (45-73); Platelet Count 292 X10*3/uL (160-400); Red Blood Count 4.62 X10*6/uL (4.20-5.50); Red Cell Distribution Width 13.9 % (11.0-16.0); White Blood Count 10.9 X10*3/uL (4.8-10.8)
[2023-12-06 09:41] LABS: Alanine Aminotransferase 23 U/L (0-31); Albumin Level 3.8 g/dL (3.5-5.0); Alkaline Phosphatase 95 U/L (39-117); Anion Gap 10 (12-20); Aspartate Amino Transferase 18 U/L (5-31); Bilirubin Total 0.3 mg/dL (0.0-1.0); Blood Urea Nitrogen 15 mg/dL (9-16); Calcium 8.4 mg/dL (8.4-10.2); Carbon Dioxide 25 mmol/L (22-29); Chloride 111 mmol/L (96-108); Cholesterol 140 mg/dL (<200); Estimated Glomerular Filt Rate > 60; Glucose Fasting 100 mg/dL (60-99); HDL Cholesterol 39 mg/dL (>40); LDL Cholesterol Calculated 80 mg/dL (<100); Magnesium 2.3 mg/dL (1.6-2.6); Potassium 3.8 mmol/L (3.3-5.1); Sodium 142 mmol/L (135-145); Total Protein 6.7 g/dL (6.5-8.0); Triglycerides 106 mg/dL (<150)
[2023-12-06 09:58] LABS: Vitamin D 25-OH Total 15.6 ng/mL (>30)
[2023-12-07 00:34] LABS: Vitamin B12 1249 pg/mL (200-900)
== END 2023-12-06 08:02 | disposition home or self-care (01) ==
LOC: HO.LAB 08:01
PROVIDERS: PCP Internal Medicine; Visit Provider Internal Medicine
DX: E55.9 Vitamin D deficiency, unspecified (principal); E53.8 Deficiency of other specified B group vitamins; R25.2 Cramp and spasm; I10 Essential (primary) hypertension; G43.009 Migraine without aura, not intractable, without status migrainosus
CPT/HCPCS: 36415; 80053; 80061; 82306; 82607; 82746; 83735; 85025

== ENCOUNTER 2023-12-08 13:14 | Outpatient (AMB) | payer OTHER, SELFPAY ==
[2023-12-08 13:17] VITALS: BP 140/82; PULSE 74; O2SAT 98; BMI 47.0
--- NOTE | 2023-12-08 13:17 | A.OFFPC_ITS ---
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 Accompanied by: Self / Same As Patient Allergies No Known Allergies Allergy (Verified 12/08/23 13:38) Medication List - Last Reconciled 12/08/23 by Tomasa Oro MD albuterol sulfate 90 mcg/actuation (Ventolin HFA) 1 inh inhalation QID PRN amlodipine 5 mg PO DAILY 90 days dkwrfvheyb-lmwoavysnajtn-cbog 50-325-40 mg 1 tab PO Q6H PRN cholecalciferol (vitamin D3) 25 mcg PO DAILY 90 days cyclobenzaprine 10 mg PO BEDTIME PRN escitalopram oxalate 5 mg PO DAILY gabapentin 300 mg PO TID 30 days galcanezumab-gnlm (Emgality Pen) 240 mg (2 mL) subcut ONCE 30 days hydrochlorothiazide 25 mg PO DAILY 90 days lidocaine 5% 1 patch topical DAILY PRN lorazepam (Ativan) 1 mg PO TID PRN losartan 100 mg PO DAILY 90 days meclizine 12.5 mg PO TID PRN 30 days mecobalamin (vitamin B12) 5,000 mcg PO .once a day 30 days meloxicam 15 mg PO DAILY nebulizers (AeroEclipse II Nebulizer) As directed omeprazole 20 mg PO DAILY 90 days oxycodone 5 mg PO BID PRN 30 days topiramate 25 mg PO BID 90 days topiramate 25 - 50 mg (1 - 2 x 25 mg) PO BID 30 days Tobacco use date assessed: 12/08/23 Dental Screening Dental Screen Date: 12/08/23 HPI HPI Comments History of Present Illness Details This is a 48-year-old female with hypertension, migraines, mild major depression, morbid obesity and low vitamin-D that comes today for follow-up on her conditions. Blood pressure borderline normal to elevated and will be recheck in 3 weeks by nurse navigator. Compliant with medications. Migraines are follow by Neurology and has not start Emgality yet. Depression stable with escitalopram. She is morbidly obese with a BMI of 47 and was advised to do diet and exercise. Declines weight loss surgery. On vitamin-D supplements and vit alegria-D still low therefore I will increase vitamin-D from 25 mcg to 50 mcg. [facility] Medical History (Updated 12/08/23 @ 14:19 by Tomasa Oro MD) Morbid obesity Morbid obesity with BMI of 50.0-59.9, adult Discoloration of skin Nodule of skin of right lower leg Mild major depression, single episode Right leg pain Neck pain B12 deficiency Muscle cramps Obesity Migraines GERD (gastroesophageal reflux disease) Hypovitaminosis D Surgical History History of tubal ligation History of section Family History Father Pure hypercholesterolemia Mother Diabetes Hypertension Maternal Grandmother Uterine cancer Diabetes Maternal Aunt Breast cancer Hypertension Diabetes Family/Other FH: mental illness Maternal Uncle Developmental delay, moderate Daughter Lymphoma Social History Housing: Apartment Alcohol intake: never Patient Tobacco Use Status: Former Tobacco user e-Cigarette/Vaping Use: Never Used Second Hand Smoke Exposure: No service: No Current occupational status: unemployed Cognitive needs: No Hearing needs: No Vision needs: Yes Female Reproductive History Menstrual Age of Menarche: 8 Questionnaire Thrive Questionnaire Date Thrive assessed: 12/08/23 I am a: Patient What is your living situation today?: I have a steady place to live Within the past 12 months, did the food you bought not last and you didn't have the money to get more?: Never true Within the past 12 months, did you worry whether your food would run out before you got money to buy more?: Never true Do you have trouble paying for medicines?: No Do you have trouble getting transportation to medical appointments?: No Do you have trouble paying your heating and electricity bill?: No Do you have trouble taking care of your child, family member or friend?: No Do you have trouble with day-to-day activities such as bathing, preparing meals, shopping, managing finances, etc.?: No Are you currently unemployed and looking for a job?: No Are you interested in more education?: No Please select the resources that you would like help with: None Currently or been in a relationship where the following occur: no concerns reported THRIVE Score: 0 AUDIT C Alcohol Use Questionnaire (AUDIT-C) 1. How often do you have a drink containing alcohol?: Never 3. How often do you have six or more drinks on one occasion?: Never Total Score: 0 Score Reviewed/Action Taken: No FLORA-7 AMB Questionnaire FLORA-7 Date FLORA - 7 assessed: 12/08/23 Source: Developed by Drs. Sg Negron, Chela Novoa, Benja Saenz and colleagues, with an educational alfonzo from [employer]. Review of Systems Const All systems reviewed & are unremarkable except as noted in HPI and below Card Denies chest pain at rest, Denies chest pain with activity, Denies edema, Denies irregular heart rhythm, Denies claudication, Denies dyspnea, Denies dyspnea on exertion, Denies orthopnea, Denies paroxysmal nocturnal dyspnea and Denies slow heart rate Resp Denies cough, Denies dyspnea and Denies dyspnea on exertion Neuro Denies confusion Psych Denies confusion Physical exam (Primary Care) Vital Signs: Last Vital Signs Pulse 74 12/08/23 13:17 BP 140/82 H 12/08/23 13:17 Pulse Ox 98 12/08/23 13:17 Oxygen Delivery Method Room Air 12/08/23 13:17 BMI result Body Mass Index 47.0 Tobacco/Smoking Status: Tobacco use Status Tobacco use date assessed 12/08/23 12/08/23 13:23 Patient Tobacco Use Status Former Tobacco user 12/08/23 13:23 e-Cigarette/Vaping Use Never Used 12/08/23 13:23 Thrive Assessment: Date of Thrive Assessment Date Thrive assessed 12/08/23 12/08/23 13:23 Currently or been in a relationship where the following occur: no concerns reported Const General: No confusion Orientation/consciousness: patient oriented x3 and No confusion Resp Effort & Inspection: normal respiratory effort Auscultation: clear to auscultation bilaterally Cardio Jugular venous distension: no JVD Rate: regular rate Rhythm: regular rhythm Heart sounds: S1 normal heart sound present and S2 normal heart sound present Neuro General: patient oriented x3, no focal motor deficits and No confusion Extrem General: Yes full ROM Assessment and Plan Assessment & Plan (1) Obesity, Class III, BMI 40-49.9 (morbid obesity): Code(s): E66.01 - Morbid (severe) obesity due to excess calories Plan: Start diet and exercise. BMI goal is less than 30. (2) Hypertension: Code(s): I10 - Essential (primary) hypertension Plan: Continue amlodipine, hydrochlorothiazide and losartan. Recheck blood pressure with nurse navigator in 3 weeks. Blood pressure goal is equal or less than 130/80. (3) Mild major depression, single episode: Code(s): F32.0 - Major depressive disorder, single episode, mild Plan: Continue escitalopram. (4) Migraines: Code(s): G43.909 - Migraine, unspecified, not intractable, without status migrainosus Qualifiers: Migraine type: without aura Status migrainosus presence: without status migrainosus Intractability: not intractable Qualified Code(s): G43.009 - Migraine without aura, not intractable, without status migrainosus Plan: Continue oxycodone as needed. Start Emgality. Continue Topamax. Follow-up with Neurology. (5) Hypovitaminosis D: Code(s): E55.9 - Vitamin D deficiency, unspecified Plan: Increase vitamin-D from 25 mcg to 50 mcg. Medications: New cholecalciferol (vitamin D3) 50 mcg PO DAILY 90 caps 1RF 90 days mecobalamin (vitamin B12) 1,000 mcg PO DAILY 90 tabs 1RF 90 days Refilled losartan 100 mg PO DAILY 90 tabs 1RF 90 days I10 - Essential (primary) hypertension hydrochlorothiazide 25 mg PO DAILY 90 tabs 3RF 90 days Discontinued cholecalciferol (vitamin D3) Discontinued Reason: Patient Completed Course 25 mcg PO DAILY 90 days 90 tabs 3RF E55.9 - Vitamin D deficiency, unspecified mecobalamin (vitamin B12) Discontinued Reason: Patient Completed Course 5,000 mcg PO .once a day 30 days 30 tabs 1RF Coding Level of Care Code Est Pt Level 4 (12245) Diagnoses Obesity, Class III, BMI 40-49.9 (morbid obesity) E66.01 Hypertension I10 Mild major depression, single episode F32.0 Migraine without status migrainosus, not intractable, unspecified migraine type G43.009 Migraine type: without aura Status migrainosus presence: without status migrainosus Intractability: not intractable Hypovitaminosis D E55.9 Time Spent (min) 23
== END 2023-12-08 13:55 | disposition home or self-care (01) ==
LOC: HO.HMGH 13:16
PROVIDERS: PCP Internal Medicine; Visit Provider Internal Medicine
DX: I10 Essential (primary) hypertension (principal); G43.009 Migraine without aura, not intractable, without status migrainosus; F32.0 Major depressive disorder, single episode, mild; E55.9 Vitamin D deficiency, unspecified
CPT/HCPCS: 99214

== ENCOUNTER 2023-12-19 08:45 | Outpatient (REF) | payer OTHER, SELFPAY ==
[2023-12-19 09:06] LABS: MANUAL DIFF FLAG NO
[2023-12-19 09:24] LABS: Basophils Absolute Auto 0.1 X10*3/uL (0.0-0.2); Basophils Percent Auto 0.7 % (0-2); Eosinophils Absolute Auto 0.2 X10*3/uL (0.0-0.4); Eosinophils Percent Auto 1.6 % (0-4); Hematocrit 38.5 % (37.0-47.0); Hemoglobin 12.6 g/dl (12.0-16.0); Imm Gran Abs Auto 0.06 X10*3/uL (0.00-0.03); Imm Gran Pct Auto 0.6 % (0.0-0.4); Lymphocytes Percent Auto 38.7 % (20-40); Mean Corpuscular HGB Conc 32.7 g/dl (31.0-35.0); Mean Corpuscular Hemoglobin 27.2 pg (27.0-33.0); Mean Corpuscular Volume 83.2 fL (80.0-98.0); Mean Platelet Volume 10.9 fL (9.4-12.3); Monocytes Absolute Auto 0.4 X10*3/uL (0.1-1.2); Monocytes Percent Auto 4.2 % (2-11); Neutrophils Absolute Auto 5.6 x10*3/uL (2.0-8.3); Neutrophils Percent Auto 54.2 % (45-73); Platelet Count 263 X10*3/uL (160-400); Red Blood Count 4.63 X10*6/uL (4.20-5.50); Red Cell Distribution Width 13.7 % (11.0-16.0); White Blood Count 10.3 X10*3/uL (4.8-10.8)
[2023-12-19 09:38] LABS: Alanine Aminotransferase 16 U/L (0-31); Albumin Level 3.9 g/dL (3.5-5.0); Alkaline Phosphatase 103 U/L (39-117); Anion Gap 14 (12-20); Aspartate Amino Transferase 14 U/L (5-31); Bilirubin Total 0.3 mg/dL (0.0-1.0); Blood Urea Nitrogen 22 mg/dL (9-16); Calcium 9.4 mg/dL (8.4-10.2); Carbon Dioxide 23 mmol/L (22-29); Chloride 108 mmol/L (96-108); Estimated Glomerular Filt Rate > 60; Glucose Random 99 mg/dL (60-115); Potassium 4.2 mmol/L (3.3-5.1); Sodium 141 mmol/L (135-145); Total Protein 7.1 g/dL (6.5-8.0)
[2023-12-19 10:04] LABS: Thyroid Stimulating Hormone 1.26 uIU/mL (0.32-4.0); Vitamin D 25-OH Total 20.7 ng/mL (>30)
[2023-12-19 10:13] LABS: Erythrocyte Sedimentation Rate 20 MM/HR (0-20)
[2023-12-19 10:22] LABS: Rheumatoid Factor < 13.0 IU/mL (<15.0)
[2023-12-19 10:35] LABS: T4 Thyroxine 6.5 ug/dL (4.5-12.0)
[2023-12-19 10:43] LABS: Vitamin B12 1622 pg/mL (200-900)
[2023-12-20 11:12] LABS: Triiodothyronine T3 Free 3.3 pg/mL (2.3-4.2)
[2023-12-22 17:38] LABS: Lyme Abs Screen <0.90 index
== END 2023-12-19 08:46 | disposition home or self-care (01) ==
LOC: HO.LAB 08:45
PROVIDERS: PCP Internal Medicine; Visit Provider Physical Medicine & Rehabilitation
DX: M79.7 Fibromyalgia (principal)
CPT/HCPCS: 36415; 80053; 82306; 82607; 84436; 84443; 84481; 85025; 85652; 86431; 86617; 86618

== ENCOUNTER 2023-12-22 14:05 | Outpatient (REF) | payer OTHER, SELFPAY | END 2023-12-22 14:06 | disposition home or self-care (01) | LOC: HO.MAMMO 14:05 | PROVIDERS: PCP Internal Medicine; Visit Provider Internal Medicine | DX: Z12.31 Encounter for screening mammogram for malignant neoplasm of breast (principal) | CPT/HCPCS: 77063; 77067 ==

== ENCOUNTER → 2023-12-22 14:30 | Outpatient (BNV) | payer OTHER, SELFPAY | PROVIDERS: PCP Internal Medicine; Visit Provider Radiology Diagnostic Radiology | DX: Z12.31 Encounter for screening mammogram for malignant neoplasm of breast (principal) | CPT/HCPCS: 77063; 77067 ==

== ENCOUNTER 2024-03-24 11:26 | Outpatient (AMB) | payer OTHER, SELFPAY ==
--- NOTE | 2024-03-24 11:56 | MHC.OFFWIV ---
Intake Vital Signs 03/24/24 12:00 Height 5 ft 2 in Weight 263 lb BMI 48.1 BP 114/82 Blood Pressure Location Lt radial Position Sitting Pulse 70 Pulse Source Pulse Oximeter Temp 98.3 F Temp Source Oral Pulse Oximetry (%) 98 Oxygen Delivery Method Room Air Intake Visit Reasons: dizziness, tingling in entire face Intake Note: pt c/o dizziness and facial tingling. Started Yesterday Patient Tobacco Use Status: Current someday Tobacco user Allergies No Known Allergies Allergy (Verified 03/24/24 11:56) Do you need a note to return to daycare/school/sports/work: No HPI HPI Comments History of Present Illness Details Patient is a 48 year old female complaining of a few days of dizziness and right ear pain and face tingling on the right side starting from her ear. She denies any fevers, change in her hearing or vision or weakness. She denies a change in any of her medications recently. She does admit to a history of vertigo. She has not taken anything to try to make it better. She states she does not take a daily allergy medication. She denies any upper respiratory symptoms. [facility] Medical History (Updated 03/24/24 @ 12:27 by Tamara Zaragoza PA-C) Morbid obesity Morbid obesity with BMI of 50.0-59.9, adult Discoloration of skin Nodule of skin of right lower leg Mild major depression, single episode Right leg pain Neck pain B12 deficiency Muscle cramps Obesity Migraines GERD (gastroesophageal reflux disease) Hypovitaminosis D Surgical History History of tubal ligation History of section Family History Father Pure hypercholesterolemia Mother Diabetes Hypertension Maternal Grandmother Uterine cancer Diabetes Maternal Aunt Breast cancer Hypertension Diabetes Family/Other FH: mental illness Maternal Uncle Developmental delay, moderate Daughter Lymphoma Social History Housing: Apartment Alcohol intake: never Patient Tobacco Use Status: Current someday Tobacco user e-Cigarette/Vaping Use: Never Used Second Hand Smoke Exposure: No service: No Current occupational status: unemployed Cognitive needs: No Hearing needs: No Vision needs: Yes Female Reproductive History Menstrual Age of Menarche: 8 Review of Systems Const All systems reviewed & are unremarkable except as noted in HPI and below Neuro Denies Abnormal speech present Physical Exam Vital Signs: Last Vital Signs Temp 98.3 F 03/24/24 12:00 Pulse 70 03/24/24 12:00 BP 114/82 03/24/24 12:00 Pulse Ox 98 03/24/24 12:00 Oxygen Delivery Method Room Air 03/24/24 12:00 BMI result Body Mass Index 48.1 Const General: cooperative, healthy appearing, comfortable, no acute distress and well developed Orientation/consciousness: patient oriented x3 Limitations: no limitations HEENT Head: Yes normal to inspection Ears: hearing grossly normal bilaterally and external ears normal General nose exam: Normal external nose present and Normal nares present Face and sinus: Yes normal facial exam Mouth: Normal oral and palatal mucosa present Throat: Yes posterior oropharynx normal Eyes General: appearance normal, both eyes and all related structures Neck Neck: Yes normal visual inspection and Yes full ROM Resp Effort & Inspection: normal respiratory effort and able to speak in complete sentences Skin General skin exam: no rashes or lesions noted Neuro General: patient oriented x3 Cranial nerves: Yes CN's II-XII intact bilaterally Cognition (Neuro): normal cognition Speech: No Abnormal speech present Gait exam (Neuro): Normal gait present Motor exam (neuro): 5/5 motor strength present throughout Extrem General: Yes normal to inspection Assessment & Plan Assessment & Plan (1) Vertigo: Code(s): R42 - Dizziness and giddiness Plan: Vital signs are stable, physical exam was unremarkable, did not see any fluid or infection in the right ear. Educated patient and her daughter and how to do the Lanny maneuver safely at home, recommended they try this but if the dizziness continues or gets worse, they go to the emergency department. Also recommended starting a daily allergy pill. Plan see above Coding Level of Care Code Est Pt Level 4 (26797) Diagnoses Vertigo R42
[2024-03-24 12:00] VITALS: BP 114/82; PULSE 70; TEMP 36.8; O2SAT 98; BMI 48.1
== END 2024-03-24 12:23 | disposition home or self-care (01) ==
PROVIDERS: PCP Internal Medicine; Visit Provider Physician Assistant
DX: R42 Dizziness and giddiness (principal)
CPT/HCPCS: 99214

== ENCOUNTER 2024-04-16 14:09 | Outpatient (AMB) | payer OTHER, SELFPAY ==
--- NOTE | 2024-04-16 14:17 | MHC.OFFVIS ---
Vital Signs 04/16/24 14:18 Height 5 ft 2 in Weight 267 lb BMI 48.8 Intake Visit Reasons: Follow Up Intake Note: Patient presents for follow up. patient has not gotten emgality prescription since first injection that was given she's been having issues with pharmacy withe getting injection she initially picked her her first shot. Allergies No Known Allergies Allergy (Verified 04/16/24 14:29) Medication List - Last Reconciled 04/16/24 by DOMONIQUE Chaudhry amlodipine 5 mg PO DAILY 90 days blood pressure kit-extra large As directed cholecalciferol (vitamin D3) 50 mcg PO DAILY 90 days diclofenac potassium 50 mg PO BID fluticasone propionate 50 mcg/actuation 1 spray intranasal BID gabapentin 300 mg PO TID 30 days galcanezumab-gnlm (Emgality Pen) 120 mg subcut ONCE 30 days hydrochlorothiazide 25 mg PO DAILY 90 days inhalational spacing device ([employer] VHC spacer) As directed latanoprost 0.005% 1 drp ophthalmic (eye) BEDTIME lorazepam (Ativan) 1 mg PO TID PRN losartan 100 mg PO DAILY 90 days meclizine 12.5 mg PO TID PRN 30 days mecobalamin (vitamin B12) 5,000 mcg PO DAILY meloxicam 15 mg PO DAILY nebulizers (AeroEclipse II Nebulizer) As directed omeprazole 20 mg PO DAILY oxycodone 5 mg PO BID PRN 30 days [shower chair As directed] topiramate 50 mg PO BID 30 days HPI Comments Details: 48-yr-old female presents for f/u of migraine. Pt reports she has been having episodes of spinning dizziness in early Mar- w/ head movement and position change. Satring OTC allergy tx- Xyzail- has not helped. Meclizine does not fully help. No ear pain. Sh ehas just recently recovered from a Covid-19 infection. She has had loading dose of Emgality, just over a month ago- so is not sure how effective it is yet. However, she has not rec'd maintenance dose. States it needs to be sent to a speciality pharmacy. Baseline headache characteristics: Aura: Right eye blurring vision, watery x's a few minutes before headache Pain intensity: Mod-Severe Location, quality, characteristics: Right sided and lee eyes then becomes holocranial. Pounding and pressure. Associated symptoms: Photophobia, phonophobia, nausea, internal dizziness, fatigue, activity intolerance, brain fog, increased neck pain. Tingling and increased skin sensitivity in the bilateral face, arms, legs. Both arms feel weak. [facility] Medical History Morbid obesity Morbid obesity with BMI of 50.0-59.9, adult Discoloration of skin Nodule of skin of right lower leg Mild major depression, single episode Right leg pain Neck pain B12 deficiency Muscle cramps Obesity Migraines GERD (gastroesophageal reflux disease) Hypovitaminosis D Surgical History History of tubal ligation History of section Family History Father Pure hypercholesterolemia Mother Diabetes Hypertension Maternal Grandmother Uterine cancer Diabetes Maternal Aunt Breast cancer Hypertension Diabetes Family/Other FH: mental illness Maternal Uncle Developmental delay, moderate Daughter Lymphoma Social History Housing: Apartment Alcohol intake: never Patient Tobacco Use Status: Current someday Tobacco user e-Cigarette/Vaping Use: Never Used Second Hand Smoke Exposure: No service: No Current occupational status: unemployed Cognitive needs: No Hearing needs: No Vision needs: Yes Female Reproductive History Menstrual Age of Menarche: 8 Physical Exam Vital Signs: BMI result Body Mass Index 48.8 Const General: cooperative and no acute distress Orientation/consciousness: patient oriented x3 Resp Effort & Inspection: normal respiratory effort and able to speak in complete sentences Neuro General: patient oriented x3 Cranial nerves: Yes Bilaterally intact EOM present and Yes Nystagmus not present Cognition (Neuro): normal cognition Coordination: [id number] test normal Romberg Test: Negative Psych Appearance: grossly normal Mental Status: mental status grossly normal Speech and movement: Normal speech and movement present Affect: normal affect Attitude: cooperative Quality Reporting (2019) Adult ([facility] 13810/09/68) Smoking risk assessment performed?: Yes Patient Tobacco Use Status: Current someday Tobacco user Assessment & Plan Assessment & Plan (1) BPPV (benign paroxysmal positional vertigo): Code(s): H81.10 - Benign paroxysmal vertigo, unspecified ear Category: Medical (2) Sleep difficulties: Code(s): G47.9 - Sleep disorder, unspecified Category: Medical (3) Snoring: Code(s): R06.83 - Snoring Category: Medical (4) Fatigue: Code(s): R53.83 - Other fatigue Category: Medical (5) Migraines: Code(s): G43.909 - Migraine, unspecified, not intractable, without status migrainosus Category: Medical Qualifiers: Migraine type: without aura Status migrainosus presence: without status migrainosus Intractability: not intractable Qualified Code(s): G43.009 - Migraine without aura, not intractable, without status migrainosus Plan Pt is again advised to undergo: Brain MRI with without contrast- to assess for secondary etiologies of newer onset headache, vision changes, diplopia, dizziness. Sleep study to assess for sleep apnea. Vestibular eval & tx ? For overall headache management: Optimize good self-care, including but not limited to maintaining a healthy diet,? adequate fluid intake, adequate sleep, and engaging in regular physical activity. Track headaches ? For acute headache treatment: Discussed importance of taking acute medications at the first sign of headache, however stressed importance of avoiding acute medication overuse (especially with combined headache medications). May continue as needed Fioricet for now, goal is to decrease this. Previous acute migraine medication trials: Sumatriptan was ineffective. Acute migraine medication contraindications: None at this time ? For headache prevention medication: Increase Topiramate from 25 mg to 50 mg b.i.d.. Emgality 120mg sc- maintenance dose sent to [facility] per local pharmacy. Pharmacy info shared w/ pt. Previous migraine prevention medication trials:? Amitriptyline: Not tolerated, Propranolol: Ineffective after 2 months, Botox ineffective after 2 cycles. Migraine prevention medication contraindications: Beta-blockers due to asthma diagnosis Orders: Orders PT Evaluation and Treatment 04/16/ H81.10 - Benign paroxysmal vertigo, unspecified ear Medications: New topiramate 50 mg PO BID 30 days 60 tabs 6RF Refilled galcanezumab-gnlm (Emgality Pen) Maintenance dose of 120 mg subcu q.month. 120 mg subcut ONCE 30 days 1 mL 6RF Discontinued topiramate Discontinued Reason: Doctor's Order 25 - 50 mg (1 - 2 x 25 mg) PO BID 30 days 120 tabs 3RF Coding Level of Care Code Est Pt Level 4 (41179) Diagnoses BPPV (benign paroxysmal positional vertigo) H81.10 Sleep difficulties G47.9 Snoring R06.83 Fatigue R53.83 Migraine without status migrainosus, not intractable, unspecified migraine type G43.009 Migraine type: without aura Status migrainosus presence: without status migrainosus Intractability: not intractable
[2024-04-16 14:18] VITALS: BMI 48.8
== END 2024-04-16 15:09 | disposition home or self-care (01) ==
PROVIDERS: PCP Internal Medicine; Visit Provider Nurse Practitioner Family
DX: H81.10 Benign paroxysmal vertigo, unspecified ear (principal); G47.9 Sleep disorder, unspecified; R06.83 Snoring; R53.83 Other fatigue; G43.009 Migraine without aura, not intractable, without status migrainosus
CPT/HCPCS: 99214

== ENCOUNTER → 2024-04-16 14:09 | Outpatient (BNVA) | payer OTHER, SELFPAY | PROVIDERS: PCP Internal Medicine; Visit Provider Nurse Practitioner Family | DX: H81.10 Benign paroxysmal vertigo, unspecified ear (principal); G43.009 Migraine without aura, not intractable, without status migrainosus; G47.9 Sleep disorder, unspecified; R06.83 Snoring; R53.83 Other fatigue | CPT/HCPCS: 99212 ==

== ENCOUNTER 2024-06-03 11:33 | Outpatient (RCR) | payer OTHER, SELFPAY ==
[2024-06-03 11:57] VITALS: BP 156/67; PULSE 83
--- NOTE | 2024-06-03 13:38 | MHC.PT.EP ---
[facility] [place] Office [place] Office [place] Office [address] Ruth Morales [address] [phone] F: [phone] F: [phone] F: [phone] F: [phone] Physical Therapy Plan of Care Date of Evaluation: 06/03/24 Date of Surgery: Diagnosis: Benign paroxysmal vertigo, unspecified ear Assessment: Pt is a pleasant 48yo F who presents to PT with dizziness. Pt reports a spinning sensation when rolling in bed toward her R side. Upon assessment, pt had reproduction of symptoms in R [place] position. She was negative for L [place]pike and B roll test. She was treated with R Lanny maneuver x 1 rep. She also reports history of vision changes; she reports she has followed up with her doctor and neurologist regarding vision changes and reports they have recommended MRI. I encouraged pt to follow up with providers regarding scheduling the recommended MRI as vision changes are not consistent with BPPV. She is a good candidate for skilled PT to assess and treat her BPPV. 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 Manual therapy to restore motion and function. Therapeutic exercise to improve strength and flexibility. Neuromuscular re-education for posture and balance. Therapeutic activities to return to functional activities of daily living. Electronically signed by: Marline Ryan, PT, DPT Please sign and return to therapist. Thank you for your referral.
--- NOTE | 2024-09-20 10:40 | MHC.PT.DC ---
[facility] [place] Office [place] Office [place] Office [address] Ruth Morales [address] [phone] F: [phone] F: [phone] F: [phone] F: [phone] Physical Therapy Discharge Report Diagnosis: Benign paroxysmal vertigo, unspecified ear Date of Surgery: Date of Evaluation: 06/03/24 Date of Discharge: 09/20/24 Treatments to Date: 1 Cancellations to Date: 1 No Shows to Date: 1 Discharge Status: Visit Non-compliance Discharge Summary: Pt was evaluated for PT on 06/03/24. She attended initial evaluation and did not attend her scheduled treatment sessions. She is being D/C from skilled PT as she has not attended or called to reschedule in > 30 days. Pt current level of function unknown at this time Electronically signed by: Marline Ryan, PT, DPT Please sign and return to therapist. Thank you for your referral.
== END 2024-09-20 10:40 | disposition home or self-care (01) ==
LOC: HO.PT 11:33
PROVIDERS: PCP Internal Medicine; Visit Provider Nurse Practitioner Family
DX: H81.10 Benign paroxysmal vertigo, unspecified ear (principal)
CPT/HCPCS: 95992; 97162

== ENCOUNTER 2024-07-20 15:19 | Outpatient (AMB) | payer OTHER, SELFPAY ==
--- NOTE | 2024-07-20 15:34 | MHC.PC.OV ---
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 Accompanied by: Self / Same As Patient Allergies No Known Allergies Allergy (Verified 07/20/24 16:08) Medication List - Last Reconciled 07/20/24 by Tomasa Oro MD amlodipine 5 mg PO DAILY 90 days blood pressure kit-extra large As directed cholecalciferol (vitamin D3) 50 mcg PO DAILY 90 days diclofenac potassium 50 mg PO BID fluticasone propionate 50 mcg/actuation 1 spray intranasal BID gabapentin 300 mg PO TID 30 days galcanezumab-gnlm (Emgality Pen) 120 mg subcut ONCE 30 days hydrochlorothiazide 25 mg PO DAILY 90 days inhalational spacing device (GloNav Ninoska C spacer) As directed latanoprost 0.005% 1 drp ophthalmic (eye) BEDTIME lorazepam (Ativan) 1 mg PO TID PRN losartan 100 mg PO DAILY 90 days meclizine 12.5 mg PO TID PRN 30 days mecobalamin (vitamin B12) 5,000 mcg PO DAILY meloxicam 15 mg PO DAILY nebulizers (AeroEclipse II Nebulizer) As directed omeprazole 20 mg PO DAILY 90 days oxycodone 5 mg PO BID PRN 30 days [shower chair As directed] topiramate 50 mg PO BID 30 days Tobacco use date assessed: 12/08/23 Dental Screening Dental Screen Date: 07/20/24 Did you have a dental visit in the last 12 months?: No Did you have a dental problem in the last 6 months where you did not have access to dental care?: No Was dental information given to patient?: Patient has dentist HPI HPI Comments History of Present Illness Details The patient is a 48-year-old female presenting with symptoms related to hypertension, chronic pain, and depression. Hypertension has been bordering high, and home monitoring has been suggested with a re-evaluation in three weeks. The patient is currently on amlodipine and hydrochlorothiazide for blood pressure management. There are indications of chronic pain managed with diclofenac, meloxicam, and gabapentin. The patient reports experiencing frequent headaches, previously treated with Butalbital, which was later discontinued. She?s now on Topiramate, increased to 50 mg twice daily, to prevent migraines. There have been effective periods followed by recurrent headaches. She also experiences vertigo for which Meclizine is used as needed. Depression and anxiety are significant concerns; the patient reports feeling anxious and occasionally smokes during depressive episodes. She mentions seeking help but remains hesitant due to previous experiences. Hydrochlorothiazide is helping with symptom control. She has postponed utilizing counseling services, and a referral has been discussed for possible medication adjustment. [facility] Medical History (Updated 07/21/24 @ 19:48 by Tomasa Oro MD) Morbid obesity Morbid obesity with BMI of 50.0-59.9, adult Discoloration of skin Nodule of skin of right lower leg Mild major depression, single episode Right leg pain Neck pain B12 deficiency Muscle cramps Obesity Migraines GERD (gastroesophageal reflux disease) Hypovitaminosis D Surgical History History of tubal ligation History of section Family History Father Pure hypercholesterolemia Mother Diabetes Hypertension Maternal Grandmother Uterine cancer Diabetes Maternal Aunt Breast cancer Hypertension Diabetes Family/Other FH: mental illness Maternal Uncle Developmental delay, moderate Daughter Lymphoma Social History Housing: Apartment Alcohol intake: never Patient Tobacco Use Status: Current someday Tobacco user e-Cigarette/Vaping Use: Never Used Second Hand Smoke Exposure: No service: No Current occupational status: unemployed Cognitive needs: No Hearing needs: No Vision needs: Yes Female Reproductive History Menstrual Age of Menarche: 8 Questionnaire PHQ-9 Over the last 2 weeks, how often have you been bothered by any of the following problems? 1. Little interest or pleasure in doing things: not at all 2. Feeling down, depressed, or hopeless: several days 3. Trouble falling or staying asleep, or sleeping too much: several days 4. Feeling tired or having little energy: several days 5. Poor appetite or overeating: not at all 6. Feeling bad about yourself - or that you are a failure or have let yourself or your family down: not at all 7. Trouble concentrating on things, such as reading the newspaper or watching television: not at all 8. Moving or speaking so slowly that other people could have noticed. Or the opposite - being so fidgety or restless that you have been moving around a lot more than usual: not at all 9. Thoughts that you would be better off or of hurting yourself in some way: not at all Total score: 3 Depression Screening Interpretation: Positive Depression Screening Follow-up: Existing condition and Follow-up Visit Requested Depression Screening Done: Yes 55603 - PHQ-9 Billing: Yes Source: Developed by Drs. Sg Negron, Chela Novoa, Benja Saenz and colleagues, with an educational alfonzo from [employer]. Thrive Questionnaire Date Thrive assessed: 07/20/24 I am a: Patient What is your living situation today?: I have a steady place to live Within the past 12 months, did the food you bought not last and you didn't have the money to get more?: Never true Within the past 12 months, did you worry whether your food would run out before you got money to buy more?: Never true Do you have trouble paying for medicines?: No Do you have trouble getting transportation to medical appointments?: No Do you have trouble paying your heating and electricity bill?: No Do you have trouble taking care of your child, family member or friend?: No Do you have trouble with day-to-day activities such as bathing, preparing meals, shopping, managing finances, etc.?: No Are you currently unemployed and looking for a job?: No Are you interested in more education?: No Please select the resources that you would like help with: None Currently or been in a relationship where the following occur: No concerns reported THRIVE Score: 0 AUDIT C Alcohol Use Questionnaire (AUDIT-C) 1. How often do you have a drink containing alcohol?: Never Total Score: 0 FLORA-7 AMB Questionnaire FLORA-7 Date FLORA - 7 assessed: 07/20/24 Feeling nervous, anxious, or on edge: 0 = Not at all Not being able to stop or control worryin = Not at all Worrying too much about different things: 0 = Not at all Trouble relaxin = Not at all Being so restless that it is hard to sit still: 0 = Not at all Becoming easily annoyed or irritable: 0 = Not at all Feeling afraid as if something awful might happen: 0 = Not at all Total FLORA-7 score (0-4 normal; 5-9 mild; 10-14 moderate; 15-21 severe): 0 Source: Developed by Drs. Sg Negron, Chela Novoa, Benja Saenz and colleagues, with an educational alfonzo from [employer]. FLORA-7 Assessment Billing FLORA-7 Assessment Tool: FLORA-7 Assessment 35352 Review of Systems Const All systems reviewed & are unremarkable except as noted in HPI and below Card Denies chest pain at rest, Denies chest pain with activity, Denies edema, Denies irregular heart rhythm, Denies claudication, Denies dyspnea, Denies dyspnea on exertion, Denies orthopnea, Denies paroxysmal nocturnal dyspnea and Denies slow heart rate Resp Denies cough, Denies dyspnea and Denies dyspnea on exertion Denies urinary incontinence, Denies urinary hesitancy and Denies urinary urgency Musc Denies abnormal gait, Denies atrophy, Denies deformity and Denies limited range of motion Neuro Denies abnormal gait and Denies lack of coordination Physical exam (Primary Care) Vital Signs: Last Vital Signs BP 140/82 H 07/20/24 15:35 BMI result Body Mass Index 46.6 BMI Assessment/Plan discussion: High BMI High, discussed plan: lifestyle, weight reduction, dietary and physical activity Tobacco/Smoking Status: Tobacco use Status Tobacco use date assessed 12/08/23 07/20/24 15:40 Patient Tobacco Use Status Current someday Tobacco 07/20/24 15:40 e-Cigarette/Vaping Use Never Used 07/20/24 15:40 Are you ready to quit: Yes Tobacco cessation counseling provided: Yes Items discussed: Nicotine replacement and QuitWorks Relapse Prevention: discussed the importance of a supportive environment, discussed negative mood or depression after quitting, weight gain after smoking is common and discussed dietary, exercise and/or lifestyle changes Number of minutes spent counselin CPT code: 55221 - 4-10 Minutes PHQ-9: PHQ-9 Score PHQ-9: Total score 3 07/20/24 16:15 Depression Screening Interpretation: Positive Depression Screening Follow-up: Existing condition and Follow-up Visit Requested Thrive Assessment: Date of Thrive Assessment Date Thrive assessed 07/20/24 07/20/24 15:40 Currently or been in a relationship where the following occur: No concerns reported Resp Effort & Inspection: normal respiratory effort Auscultation: clear to auscultation bilaterally Cardio Jugular venous distension: no JVD Rate: regular rate Rhythm: regular rhythm Heart sounds: S1 normal heart sound present and S2 normal heart sound present Extrem General: Yes full ROM Office Procedures Flu Questionnaire Does the patient have a severe egg allergy?: No Immunizations Fluarix Triv [id number] (PF) 45 mcg (15 mcg x 3)/0.5 mL IM syringe Performing Provider: Tomasa Oro MD [place] [facility] [place] [facility] [place] [facility] Documented (not given) by: BIMAL Kline on 07/20/24 15:44 Reason Not Given: Patient Refused Coding Level of Care Code Est Pt Level 4 (16785) Complex EM visit Add On G2211 Diagnoses Foot pain M79.673 Mild major depression, single episode F32.0 Hypertension I10 Migraine without status migrainosus, not intractable, unspecified migraine type G43.009 Migraine type: without aura Status migrainosus presence: without status migrainosus Intractability: not intractable Morbid obesity E66.01 Additional Codes FLORA-7 Assessment Billing - FLORA-7 Assessment Tool: FLORA-7 Assessment 74838 ([id number]) PHQ-9 - 67727 - PHQ-9 Billing: Yes ([id number]) Vital Signs *Quality* - CPT code: 06446 - 4-10 Minutes ([id number]) Time Spent (min) 24 Assessment & Plan Assessment & Plan (1) Foot pain: Code(s): M79.673 - Pain in unspecified foot Category: Medical (2) Mild major depression, single episode: Code(s): F32.0 - Major depressive disorder, single episode, mild Category: Medical (3) Hypertension: Code(s): I10 - Essential (primary) hypertension Category: Medical (4) Migraines: Code(s): G43.909 - Migraine, unspecified, not intractable, without status migrainosus Category: Medical Qualifiers: Migraine type: without aura Status migrainosus presence: without status migrainosus Intractability: not intractable Qualified Code(s): G43.009 - Migraine without aura, not intractable, without status migrainosus (5) Morbid obesity: Code(s): E66.01 - Morbid (severe) obesity due to excess calories Category: Medical Plan - Essential Hypertension: Continue current antihypertensive regimen with amlodipine and hydrochlorothiazide. Encourage home monitoring of blood pressure and reassess in three weeks. - Depression with Anxiety: Referral to psychiatric services for medication assessment. Discuss non-counseling medication initiation. - Migraine Headaches: Maintain Topiramate regimen and monitor efficacy. - Vertigo: Continue Meclizine PRN for vertigo. - Chronic Pain: Review and adjust current medications if necessary; consider additional referrals if pain persists without improvement. Patient was informed and verbally consented to the use of an ambient scribe for clinic note documentation during this visit. I have discussed the management of hypertension, emphasizing the importance of regular blood pressure monitoring at home. We reviewed the use of current medications and the possibility of incorporating lifestyle modifications to maintain healthy levels. For depression with anxiety, a referral was proposed for medication-based therapy, which the patient has been hesitant about. I explained the available services and how expedited medication management could progress through referrals. Concerning migraines, I advised that the Topiramate prescription is intended to reduce frequency, and we will monitor its effectiveness. The patient was advised to continue with the existing regimen for chronic pain and vertigo treatment. Orders: Orders Influenza [id number] Immunization 07/20/24 Z23 - Encounter for immunization Referrals Psychiatry Outpatient Consultation Service F32.0 - Major depressive disorder, single episode, mild Medications: New cane As directed 1 ea 0RF I73.9 - Peripheral vascular disease, unspecified, M79.673 - Pain in unspecified foot Refilled amlodipine 5 mg PO DAILY 90 tabs 0RF 90 days I10 - Essential (primary) hypertension Patient Instructions: - Monitor blood pressure at home using the provided guidelines and report any significant changes. - Continue medications as discussed: Topiramate, Amlodipine, Hydrochlorothiazide, Diclofenac, Gabapentin, and Meclizine. - Consider the psychiatric referral for depression management with medication. - Keep a headache diary to monitor migraine patterns and effectiveness of Topiramate. - Follow up in three weeks for re-evaluation.
[2024-07-20 15:35] VITALS: BP 140/82; BMI 46.6
== END 2024-07-20 16:22 | disposition home or self-care (01) ==
PROVIDERS: PCP Internal Medicine; Visit Provider Internal Medicine
DX: I10 Essential (primary) hypertension (principal); F32.0 Major depressive disorder, single episode, mild; E66.01 Morbid (severe) obesity due to excess calories; Z68.42 Body mass index [BMI] 45.0-49.9, adult; G43.009 Migraine without aura, not intractable, without status migrainosus; F17.200 Nicotine dependence, unspecified, uncomplicated

== ENCOUNTER → 2024-07-20 15:19 | Outpatient (BNVA) | payer OTHER, SELFPAY | PROVIDERS: PCP Internal Medicine; Visit Provider Internal Medicine | DX: F32.0 Major depressive disorder, single episode, mild (principal); I10 Essential (primary) hypertension; G43.009 Migraine without aura, not intractable, without status migrainosus; E66.01 Morbid (severe) obesity due to excess calories | CPT/HCPCS: 90471; 96127; 99212 ==

== ENCOUNTER 2025-05-03 15:20 | Outpatient (AMB) | payer OTHER, SELFPAY ==
[2025-05-03 15:25] VITALS: BP 142/64; PULSE 77; RESP 18; TEMP 36.2; O2SAT 97; BMI 47.0
--- NOTE | 2025-05-03 15:25 | A.OFFPC_ITS ---
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 Accompanied by: Self / Same As Patient Allergies No Known Allergies Allergy (Verified 05/03/25 15:42) Medication List - Last Reconciled 05/03/25 by Tomasa Oro MD amlodipine 5 mg PO DAILY 90 days blood pressure kit-extra large As directed cane As directed cholecalciferol (vitamin D3) 50 mcg PO DAILY 90 days diclofenac potassium 50 mg PO BID gabapentin 300 mg PO TID 30 days galcanezumab-gnlm (Emgality Pen) 120 mg subcut Q30D 30 days hydrochlorothiazide 25 mg PO DAILY 90 days inhalational spacing device (Runteq C spacer) As directed latanoprost 0.005% 1 drp ophthalmic (eye) BEDTIME leg brace (CIRO Ankle Brace) As directed lorazepam (Ativan) 1 mg PO TID PRN losartan 100 mg PO DAILY 90 days meclizine 12.5 mg PO TID PRN 30 days mecobalamin (vitamin B12) 1,000 mcg PO DAILY 90 days meloxicam 15 mg PO DAILY nebulizers (AeroEclipse II Nebulizer) As directed omeprazole 20 mg PO DAILY 90 days oxycodone 5 mg PO BID PRN 30 days [shower chair As directed] tirzepatide 2.5 mg (0.5 mL) subcut QWEEK 4 weeks topiramate 50 mg PO BID 30 days Tobacco use date assessed: 05/03/25 Dental Screening Dental Screen Date: 05/03/25 Did you have a dental visit in the last 12 months?: Yes Did you have a dental problem in the last 6 months where you did not have access to dental care?: No Was dental information given to patient?: Patient has dentist HPI HPI Comments History of Present Illness Details The patient is a 49-year-old female presenting for follow-up on hypertension and chronic migraines. Hypertension is managed with amlodipine, hydrochlorothiazide, and losartan, with good medication adherence reported. Chronic migraines are treated with oxycodone and topiramate, under neurologist supervision. Moderate depression is present, with a PHQ-9 score of 18, but the patient declines further treatment. GERD is managed with omeprazole. Obesity is noted with a BMI of 47, and lifestyle modifications are recommended. Excessive daytime sleepiness is reported, with a sleep study planned to evaluate for obstructive sleep apnea. She severely dozed off while watching TV, sitting and reading, sitting inactive in a public place and laying down in the afternoon with an [place] score Scale of 12. She complains of right leg edema that has been present since 2021 and I will order compression stockings. [facility] Medical History (Updated 05/03/25 @ 16:23 by Tomasa Oro MD) Morbid obesity Morbid obesity with BMI of 50.0-59.9, adult Discoloration of skin Nodule of skin of right lower leg Mild major depression, single episode Right leg pain Neck pain B12 deficiency Muscle cramps Obesity Migraines GERD (gastroesophageal reflux disease) Hypovitaminosis D Surgical History History of tubal ligation History of section Family History Father Pure hypercholesterolemia Mother Diabetes Hypertension Maternal Grandmother Uterine cancer Diabetes Maternal Aunt Breast cancer Hypertension Diabetes Family/Other FH: mental illness Maternal Uncle Developmental delay, moderate Daughter Lymphoma Social History Housing: Apartment Alcohol intake: never Patient Tobacco Use Status: Current someday Tobacco user e-Cigarette/Vaping Use: Never Used Second Hand Smoke Exposure: No service: No Current occupational status: unemployed Cognitive needs: No Hearing needs: No Vision needs: Yes Female Reproductive History Menstrual Age of Menarche: 8 Questionnaire PHQ-9 Over the last 2 weeks, how often have you been bothered by any of the following problems? 1. Little interest or pleasure in doing things: more than half the days 2. Feeling down, depressed, or hopeless: more than half the days 3. Trouble falling or staying asleep, or sleeping too much: more than half the days 4. Feeling tired or having little energy: more than half the days 5. Poor appetite or overeating: more than half the days 6. Feeling bad about yourself - or that you are a failure or have let yourself or your family down: more than half the days 7. Trouble concentrating on things, such as reading the newspaper or watching television: more than half the days 8. Moving or speaking so slowly that other people could have noticed. Or the opposite - being so fidgety or restless that you have been moving around a lot more than usual: more than half the days 9. Thoughts that you would be better off or of hurting yourself in some way: more than half the days Total score: 18 Depression Screening Interpretation: Positive (no suicidal thoughts) Depression Screening Follow-up: Existing condition and Follow-up Visit Requested Depression Screening Done: Yes 26060 - PHQ-9 Billing: Yes Source: Developed by Drs. Sg Negron, Chela Novoa, Benja Saenz and colleagues, with an educational alfonzo from [employer]. Thrive Questionnaire Date Thrive assessed: 07/20/24 I am a: Patient What is your living situation today?: I have a steady place to live Within the past 12 months, did the food you bought not last and you didn't have the money to get more?: Sometimes True Within the past 12 months, did you worry whether your food would run out before you got money to buy more?: Sometimes True Do you have trouble paying for medicines?: No Do you have trouble getting transportation to medical appointments?: Yes Do you have trouble paying your heating and electricity bill?: No Do you have trouble taking care of your child, family member or friend?: No Do you have trouble with day-to-day activities such as bathing, preparing meals, shopping, managing finances, etc.?: Yes Are you currently unemployed and looking for a job?: No Are you interested in more education?: No Please select the resources that you would like help with: None Currently or been in a relationship where the following occur: No concerns reported THRIVE Score: 3 AUDIT C Alcohol Use Questionnaire (AUDIT-C) 1. How often do you have a drink containing alcohol?: Never Total Score: 0 Score Reviewed/Action Taken: No FLORA-7 AMB Questionnaire FLORA-7 Date FLORA - 7 assessed: 07/20/24 Feeling nervous, anxious, or on edge: 1 = Several days Not being able to stop or control worryin = Several days Worrying too much about different things: 1 = Several days Trouble relaxin = Several days Being so restless that it is hard to sit still: 1 = Several days Becoming easily annoyed or irritable: 2 = More than half the days Feeling afraid as if something awful might happen: 2 = More than half the days Total FLORA-7 score (0-4 normal; 5-9 mild; 10-14 moderate; 15-21 severe): 9 Source: Developed by Drs. Sg Negron, Chela Novoa, Benja Saenz and colleagues, with an educational alfonzo from [employer]. FLORA-7 Assessment Billing FLORA-7 Assessment Tool: FLORA-7 Assessment 13726 Review of Systems Const All systems reviewed & are unremarkable except as noted in HPI and below Card Denies chest pain at rest, Denies chest pain with activity, Denies edema, Denies irregular heart rhythm, Denies claudication, Denies dyspnea, Denies dyspnea on exertion, Denies orthopnea, Denies paroxysmal nocturnal dyspnea and Denies slow heart rate Resp Denies cough, Denies dyspnea and Denies dyspnea on exertion Neuro Denies lack of coordination Physical exam (Primary Care) Vital Signs: Last Vital Signs Temp 97.1 F 05/03/25 15:25 Pulse 77 05/03/25 15:25 Resp 18 05/03/25 15:25 BP 142/64 H 05/03/25 15:25 Pulse Ox 97 05/03/25 15:25 Oxygen Delivery Method Room Air 05/03/25 15:25 BMI result Body Mass Index 47.0 BMI Assessment/Plan discussion: High BMI High, discussed plan: lifestyle, weight reduction, dietary and physical activity Tobacco/Smoking Status: Tobacco use Status Tobacco use date assessed 05/03/25 05/03/25 15:26 Patient Tobacco Use Status Current someday Tobacco 05/03/25 15:26 e-Cigarette/Vaping Use Never Used 05/03/25 15:26 PHQ-9: PHQ-9 Score PHQ-9: Total score 18 05/03/25 15:51 Depression Screening Interpretation: Positive (no suicidal thoughts) Depression Screening Follow-up: Existing condition and Follow-up Visit Requested Thrive Assessment: Date of Thrive Assessment Date Thrive assessed 07/20/24 05/03/25 15:26 Currently or been in a relationship where the following occur: No concerns reported Resp Effort & Inspection: normal respiratory effort Auscultation: clear to auscultation bilaterally Cardio Jugular venous distension: no JVD Rate: regular rate Rhythm: regular rhythm Heart sounds: S1 normal heart sound present and S2 normal heart sound present Extrem General: Yes full ROM Coding Level of Care Code Est Pt Level 4 (95299) Complex EM visit Add On G2211 Diagnoses Leg edema, right R60.0 Moderate recurrent major depression F33.1 Hypertension I10 Morbid obesity with BMI of 45.0-49.9, adult E66.01; Z68.42 Gastroesophageal reflux disease, unspecified whether esophagitis present K21.9 Esophagitis presence: esophagitis presence not specified Daytime somnolence R40.0 Additional Codes FLORA-7 Assessment Billing - FLORA-7 Assessment Tool: FLORA-7 Assessment 84079 ([id number]) PHQ-9 - 75379 - PHQ-9 Billing: Yes ([id number]) Time Spent (min) 24 Assessment & Plan Assessment & Plan (1) Leg edema, right: Code(s): R60.0 - Localized edema Category: Medical (2) Moderate recurrent major depression: Code(s): F33.1 - Major depressive disorder, recurrent, moderate Category: Medical (3) Hypertension: Code(s): I10 - Essential (primary) hypertension Category: Medical (4) Morbid obesity with BMI of 45.0-49.9, adult: Code(s): E66.01 - Morbid (severe) obesity due to excess calories; Z68.42 - Body mass index [BMI] 45.0-49.9, adult Category: Medical (5) GERD (gastroesophageal reflux disease): Code(s): K21.9 - Gastro-esophageal reflux disease without esophagitis Category: Medical Qualifiers: Esophagitis presence: esophagitis presence not specified Qualified Code(s): K21.9 - Gastro-esophageal reflux disease without esophagitis (6) Daytime somnolence: Code(s): R40.0 - Somnolence Category: Medical Plan Plan Patient was informed and verbally consented to the use of an ambient scribe for clinic note documentation during this visit. 1. Essential (primary) hypertension I10 The patient will continue with her current antihypertensive regimen of amlodipine, hydrochlorothiazide, and losartan. 2. Chronic migraine without aura, not intractable, without status migrainosus G43.709 The patient will continue using oxycodone for acute episodes and topiramate for prophylaxis, under neurologist supervision. 3. Major depressive disorder, single episode, unspecified F32.9 The patient declines pharmacological treatment or counseling at this time. 4. Gastro-esophageal reflux disease without esophagitis K21.9 The patient will continue with omeprazole for management of GERD. 5. Morbid (severe) obesity due to excess calories E66.01 HCC 22 The patient is advised to engage in diet and exercise to manage obesity. 6. Somnolence R40.0 A sleep study is ordered to evaluate for obstructive sleep apnea. Orders: Orders RT home sleep study Today R40.0 - Somnolence Lipid Panel Today E78.5 - Hyperlipidemia, unspecified Complete Blood Count Auto Diff Today E66.01 - Morbid (severe) obesity due to excess calories Vitamin B12 and Folate Today E53.8 - Deficiency of other specified B group vitamins Vitamin D 25-OH Total Today E55.9 - Vitamin D deficiency, unspecified Comprehensive Met. Panel Today E66.01 - Morbid (severe) obesity due to excess calories Thyroid Stimulating Hormone Today E66.01 - Morbid (severe) obesity due to excess calories Medications: New compr.stocking,knee,long,x-lrg As directed 2 ea 6RF R60.0 - Localized edema Discontinued tirzepatide for 4 weeks Discontinued Reason: Patient Completed Course 2.5 mg (0.5 mL) subcut QWEEK 4 weeks 2 mL 0RF E66.01 - Morbid (severe) obesity due to excess calories, I10 - Essential (primary) hypertension, I73.9 - Peripheral vascular disease, unspecified
== END 2025-05-03 16:11 | disposition home or self-care (01) ==
LOC: HO.HMCH 15:20
PROVIDERS: PCP Internal Medicine; Visit Provider Internal Medicine
DX: R60.0 Localized edema (principal); F33.1 Major depressive disorder, recurrent, moderate; E66.01 Morbid (severe) obesity due to excess calories; Z68.42 Body mass index [BMI] 45.0-49.9, adult; I10 Essential (primary) hypertension; K21.9 Gastro-esophageal reflux disease without esophagitis; R40.0 Somnolence

== ENCOUNTER → 2025-05-03 15:20 | Outpatient (BNVA) | payer OTHER, SELFPAY | PROVIDERS: PCP Internal Medicine; Visit Provider Internal Medicine | DX: I10 Essential (primary) hypertension (principal); G43.709 Chronic migraine without aura, not intractable, without status migrainosus; K21.9 Gastro-esophageal reflux disease without esophagitis; E66.9 Obesity, unspecified; R40.0 Somnolence; R60.0 Localized edema; F33.1 Major depressive disorder, recurrent, moderate; E66.01 Morbid (severe) obesity due to excess calories; E78.5 Hyperlipidemia, unspecified; E53.8 Deficiency of other specified B group vitamins; E55.9 Vitamin D deficiency, unspecified; I73.9 Peripheral vascular disease, unspecified; Z68.42 Body mass index [BMI] 45.0-49.9, adult; Z79.899 Other long term (current) drug therapy | CPT/HCPCS: 96127; 99212 ==

== ENCOUNTER 2025-05-20 15:17 | Outpatient (AMB) | payer OTHER, SELFPAY ==
[2025-05-20 15:53] VITALS: BP 136/80; PULSE 77; O2SAT 97; BMI 47.2
--- NOTE | 2025-05-20 15:53 | MHC.PC.OV ---
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 Accompanied by: Self / Same As Patient Allergies No Known Allergies Allergy (Verified 05/20/25 15:54) Medication List - Last Reconciled 05/20/25 by Anirudh London MD amlodipine 5 mg PO DAILY 90 days blood pressure kit-extra large As directed cane As directed cholecalciferol (vitamin D3) 50 mcg PO DAILY 90 days compr.stocking,knee,long,x-lrg As directed diclofenac potassium 50 mg PO BID gabapentin 300 mg PO TID 30 days galcanezumab-gnlm (Emgality Pen) 120 mg subcut Q30D 30 days hydrochlorothiazide 25 mg PO DAILY 90 days inhalational spacing device ([employer] VHC spacer) As directed latanoprost 0.005% 1 drp ophthalmic (eye) BEDTIME leg brace (CIRO Ankle Brace) As directed lorazepam (Ativan) 1 mg PO TID PRN losartan 100 mg PO DAILY 90 days meclizine 12.5 mg PO TID PRN 30 days mecobalamin (vitamin B12) 1,000 mcg PO DAILY 90 days meloxicam 15 mg PO DAILY nebulizers (AeroEclipse II Nebulizer) As directed omeprazole 20 mg PO DAILY 90 days oxycodone 5 mg PO BID PRN 30 days [shower chair As directed] topiramate 50 mg PO BID 30 days Tobacco use date assessed: 05/20/25 Dental Screening Dental Screen Date: 05/20/25 Did you have a dental visit in the last 12 months?: Yes Did you have a dental problem in the last 6 months where you did not have access to dental care?: No Was dental information given to patient?: Patient has dentist HPI HPI Comments History of Present Illness Details The patient is a 49-year-old female presenting for a physical examination required by a program she is applying for. The patient has a history of hypertension and is currently taking multiple medications including amlodipine, hydrochlorothiazide, and losartan. She reports no need for medication refills as there are refills available at the pharmacy. The patient reports a history of arthritis and is under the care of a specialist who is considering an injection due to the ineffectiveness of current medication. The patient experiences insomnia and has a sleep study scheduled for June to evaluate her condition and potentially adjust her migraine medication. She expresses a desire to have the sleep study appointment moved to an earlier date due to significant sleep disturbances. In terms of preventative care, the patient has completed a colon cancer screening with a stool test and has an upcoming appointment for a Pap smear and a mammogram. [facility], [facility] Medical History Morbid obesity Morbid obesity with BMI of 50.0-59.9, adult Discoloration of skin Nodule of skin of right lower leg Mild major depression, single episode Right leg pain Neck pain B12 deficiency Muscle cramps Obesity Migraines GERD (gastroesophageal reflux disease) Hypovitaminosis D Surgical History History of tubal ligation History of section Family History Father Pure hypercholesterolemia Mother Diabetes Hypertension Maternal Grandmother Uterine cancer Diabetes Maternal Aunt Breast cancer Hypertension Diabetes Family/Other FH: mental illness Maternal Uncle Developmental delay, moderate Daughter Lymphoma Social History Housing: Apartment Alcohol intake: never Patient Tobacco Use Status: Current someday Tobacco user e-Cigarette/Vaping Use: Never Used Second Hand Smoke Exposure: No service: No Current occupational status: unemployed Cognitive needs: No Hearing needs: No Vision needs: Yes Female Reproductive History Menstrual Age of Menarche: 8 Questionnaire Thrive Questionnaire Date Thrive assessed: 05/03/25 I am a: Patient What is your living situation today?: I have a steady place to live Within the past 12 months, did the food you bought not last and you didn't have the money to get more?: Sometimes True Within the past 12 months, did you worry whether your food would run out before you got money to buy more?: Sometimes True Do you have trouble paying for medicines?: No Do you have trouble getting transportation to medical appointments?: Yes Do you have trouble paying your heating and electricity bill?: No Do you have trouble taking care of your child, family member or friend?: No Do you have trouble with day-to-day activities such as bathing, preparing meals, shopping, managing finances, etc.?: Yes Are you currently unemployed and looking for a job?: No Are you interested in more education?: No Please select the resources that you would like help with: None Currently or been in a relationship where the following occur: No concerns reported THRIVE Score: 3 AUDIT C Alcohol Use Questionnaire (AUDIT-C) 1. How often do you have a drink containing alcohol?: Never 3. How often do you have six or more drinks on one occasion?: Never Total Score: 0 Score Reviewed/Action Taken: No FLORA-7 AMB Questionnaire FLORA-7 Date FLORA - 7 assessed: 07/20/24 Source: Developed by Drs. Sg Negron, Chela Novoa, Benja Saenz and colleagues, with an educational alfonzo from [employer]. Review of Systems Const Details: Positives besides what was mentioned in HPI are in BOLD Constitutional: No Weight Change, No Fever, No Chills, No Night Sweats, No Fatigue, No Malaise ENT/Mouth: No Hearing Changes, No Ear Pain, No Nasal Congestion, No Sinus Pain, No Hoarseness, No sore throat, No Rhinorrhea, No Swallowing Difficulty Eyes: No Eye Pain, No Swelling, No Redness, No Foreign Body, No Discharge, No Vision Changes Cardiovascular: No Chest Pain, No SOB, No PND, No Dyspnea on Exertion, No Orthopnea, No Claudication, No Edema, No Palpitations Respiratory: No Cough, No Sputum, No Wheezing, No Smoke Exposure, No Dyspnea Gastrointestinal: No Nausea, No Vomiting, No Diarrhea, No Constipation, No Pain, No Heartburn, No Anorexia, No Dysphagia, No Hematochezia, No Melena, No Flatulence, No Jaundice Genitourinary: No Dysmenorrhea, No DUB, No Dyspareunia, No Dysuria, No Urinary Frequency, No Hematuria, No Urinary Incontinence, No Urgency, No Flank Pain, No Urinary Flow Changes, No Hesitancy Musculoskeletal: No Arthralgias, No Myalgias, No Joint Swelling, No Joint Stiffness, No Back Pain, No Neck Pain, No Injury History Skin: No Skin Lesions, No Pruritis, No Hair Changes, No Breast/Skin Changes, No Nipple Discharge Neuro: No Weakness, No Numbness, No Paresthesias, No Loss of Consciousness, No Syncope, No Dizziness, No Headache, No Coordination Changes, No Recent Falls Psych: No Anxiety/Panic, No Depression, No Insomnia, No Personality Changes, No Delusions, No Rumination, No SI/HI/AH/VH, No Social Issues, No Memory Changes, No Violence/Abuse Hx., No Eating Concerns Heme/Lymph: No Bruising, No Bleeding, No Transfusions History, No Lymphadenopathy Endocrine: No Polyuria, No Polydipsia, No Temperature Intolerance Physical exam (Primary Care) Vital Signs: Last Vital Signs Pulse 77 05/20/25 15:53 BP 136/80 05/20/25 15:53 Pulse Ox 97 05/20/25 15:53 Oxygen Delivery Method Room Air 05/20/25 15:53 BMI result Body Mass Index 47.2 Tobacco/Smoking Status: Tobacco use Status Tobacco use date assessed 05/20/25 05/20/25 16:00 Patient Tobacco Use Status Current someday Tobacco 05/20/25 15:54 e-Cigarette/Vaping Use Never Used 05/20/25 15:54 Thrive Assessment: Date of Thrive Assessment Date Thrive assessed 05/03/25 05/20/25 15:54 Currently or been in a relationship where the following occur: No concerns reported Const Other: Pertinent findings are in BOLD GENERAL APPEARANCE NAD, activity normal for age, well developed/ well nourished, no cyanosis, pallor, or diaphoresis. EYES lids/conjunctiva normal. EARS/NOSE/THROAT Mucous membranes moist, nares normal, lips/teeth normal uvula midline without oral pharyngeal erythema, exudate or swelling TMs normal bilaterally. No lymphangitis/lymphedema. HEAD/NECK normocephalic atraumatic, no facial trauma, neck is supple. RESPIRATORY respiratory effort normal, speaks in full sentences, no tripod position, no accessory muscle use. Lungs clear to auscultation without rhonchi, wheezes, rales CARDIAC Regular rate and rhythm, no edema. ABDOMINAL Soft, ND/NT. No evidence of fluid wave. No pulsatile masses on exam, rebound tenderness, Ivey sign or pain over Mcburney's point. MUSCLES/EXTREMITIES No abnormal range of motion, no swelling. SKIN Warm, pink and dry. No rashes, dermatoses, petechiae or lesions. NEUROLOGICAL Speech is clear and appropriate. Normal level of consciousness. Gait and coordination are normal. 5/5 strength in all extremities. PSYCH Normal mood and affect. Judgement/competence is appropriate Coding Level of Care Code Est Pt Level 4 (02656) Est Pt Prev Care 40-64y(64101) Diagnoses Healthcare maintenance Z00.00 Hypertension I10 Polyarthralgia M25.50 B12 deficiency E53.8 Insomnia G47.00 Time Spent (min) 40 Assessment & Plan Assessment & Plan (1) Healthcare maintenance: Code(s): Z00.00 - Encounter for general adult medical examination without abnormal findings Category: Medical Plan: CBC, CMP, Lipid panel, A1C, TSH w T4, vit D. ordered by Dr. Morton. Shingles 2 doses when >50 yo Not given. COVID: two doses. Flu vaccine: Patient will think about getting it from retail pharmacy. Colonoscopy: 45-75 [place] done in 2023. NExt due in 2026. AAA: 65 -[address] lun - 80 HPV: Has appointment this year 05/23. HIV: HBV: HCV: Dexa: NI Mammogram: Has appointment on 06/02. (2) Hypertension: Code(s): I10 - Essential (primary) hypertension Category: Medical Plan: Continue current antihypertensive medications: amlodipine, hydrochlorothiazide, losartan (3) Polyarthralgia: Code(s): M25.50 - Pain in unspecified joint Category: Medical Plan: - Follow up with specialist for potential injection due to current medication ineffectiveness (4) B12 deficiency: Code(s): E53.8 - Deficiency of other specified B group vitamins Category: Medical Plan: Continue vit B12 supplementation. (5) Insomnia: Code(s): G47.00 - Insomnia, unspecified Category: Medical Plan: - Sleep study scheduled for June to evaluate condition and adjust migraine medication Plan I discussed with the patient the importance of continuing her current antihypertensive medications and following up with her specialist for arthritis management. We also talked about the upcoming sleep study to address her insomnia and the possibility of adjusting her migraine medication based on the results. Orders: Orders Hepatitis B Surface Antibody Today Z00.00 - Encounter for general adult medical examination without abnormal findings Hemoglobin A1c Today Z00.00 - Encounter for general adult medical examination without abnormal findings HIV Ab/Ag Today Z00.00 - Encounter for general adult medical examination without abnormal findings Hepatitis B Core Antibody Today - Encounter for general adult medical examination without abnormal findings Hepatitis C Antibody Reflex Today - Encounter for general adult medical examination without abnormal findings Hepatitis B Surface Antigen Today - Encounter for general adult medical examination without abnormal findings
== END 2025-05-20 17:36 | disposition home or self-care (01) ==
LOC: HO.HMCH 15:18
PROVIDERS: PCP Internal Medicine; Visit Provider Internal Medicine
DX: Z00.00 Encounter for general adult medical examination without abnormal findings (principal); I10 Essential (primary) hypertension; M25.50 Pain in unspecified joint; E53.8 Deficiency of other specified B group vitamins; G47.00 Insomnia, unspecified

== ENCOUNTER → 2025-05-20 15:17 | Outpatient (BNVA) | payer OTHER, SELFPAY | PROVIDERS: PCP Internal Medicine; Visit Provider Internal Medicine | DX: Z00.00 Encounter for general adult medical examination without abnormal findings (principal); I10 Essential (primary) hypertension; M25.50 Pain in unspecified joint; E53.8 Deficiency of other specified B group vitamins; G47.00 Insomnia, unspecified; Z72.0 Tobacco use | CPT/HCPCS: 99396 ==

== ENCOUNTER 2025-05-23 09:26 | Outpatient (AMB) | payer OTHER, SELFPAY ==
--- NOTE | 2025-05-23 09:36 | MHC.OFFVIS ---
Vital Signs 05/23/25 09:39 Height 5 ft 2 in Weight 252 lb BMI 46.1 BP 124/76 Intake Visit Reasons: ANNUAL Industrial Management Teacher Required: Yes Industrial Management Teacher Language: Arcade Game Technician Services: Industrial Management Teacher Present (in person) Industrial Management Teacher Name: Cecelia WALLIS Information Interpreted: non-clinical & clinical Supervisor [employer]intering [employer]: Supervisor [employer] Present (Cecelia WALLIS) Accompanied by: Self / Same As Patient Allergies No Known Allergies Allergy (Verified 05/23/25 09:41) Is last menstrual period known: Yes Last menstrual period: 05/10/25 HPI Comments Details: Presenting for annual exam. The patient gives history of uterine myoma, No complaints. Last Pap/HPV was negative at [facility] in 01/07 Last Mammogram was BI-RADS 1 in 01/08, the patient is scheduled for another screening mammogram soon No previous screening colonoscopy [facility] Medical History Morbid obesity Morbid obesity with BMI of 50.0-59.9, adult Discoloration of skin Nodule of skin of right lower leg Mild major depression, single episode Right leg pain Neck pain B12 deficiency Muscle cramps Obesity Migraines GERD (gastroesophageal reflux disease) Hypovitaminosis D Surgical History History of tubal ligation History of section Family History Father Pure hypercholesterolemia Mother Diabetes Hypertension Maternal Grandmother Uterine cancer Diabetes Maternal Aunt Breast cancer Hypertension Diabetes Family/Other FH: mental illness Maternal Uncle Developmental delay, moderate Daughter Lymphoma Social History Housing: Apartment Alcohol intake: never Patient Tobacco Use Status: Former Tobacco user Years Smoked: 12 e-Cigarette/Vaping Use: Never Used Second Hand Smoke Exposure: No service: No Current occupational status: unemployed Sexually active: No Sexual orientation: Straight/Heterosexual Gender identity: Female Cognitive needs: No Hearing needs: No Vision needs: Yes Female Reproductive History Menstrual Age of Menarche: 8 Date of last menstrual period: 05/10/25 Date of last pap smear: 12/28/21 Date of Mammogram: 12/22/23 Review of Systems Const All systems reviewed & are unremarkable except as noted in HPI and below Card Reports as per HPI Resp Reports as per HPI GI Reports as per HPI and Reports no additional complaints Reports as per HPI Physical Exam Vital Signs: Last Vital Signs BP 124/76 05/23/25 09:39 BMI result Body Mass Index 46.1 Const General: cooperative, healthy appearing and comfortable Chest Chest palpation & inspection: normal inspection of the chest and normal palpation of entire chest wall Breast/axilla inspection: normal inspection of the breasts and normal inspection of the axillae Breast/axilla palpation: normal palpation of the breasts, normal palpation of the axillae and no axillary lymphadenopathy Resp Effort & Inspection: normal respiratory effort Auscultation: clear to auscultation bilaterally Percussion: percussion normal Cardio Palpation: normal PMI Rate: regular rate Rhythm: regular rhythm Heart sounds: no murmurs and no rubs Peripheral pulses: Peripheral pulses 2+ throughout GI Inspection: Yes normal to inspection Palpation (GI): Soft to palpation, nontender, no guarding, not rigid and No hepatosplenomegaly present Percussion: Yes normal to percussion Auscultation: normal bowel sounds Rectal Exam - Female: deferred General: Yes bladder normal to palpation External Female Exam: No lesion Speculum Exam - Vagina: normal appearance of the vagina, normal palpation, normal vaginal discharge and not erythematous Speculum Exam - Cervix: normal appearance of the cervix and normal palpation Bimanual exam- vagina & uterus: normal bimanual exam, normal palpation, uterine size normal, bladder normal to palpation, consistency normal and normal palpation Bimanual Exam- Adnexa, other: normal adnexae, no masses and no tenderness Assessment & Plan Assessment & Plan (1) Well woman exam: Code(s): Z01.419 - Encounter for gynecological examination (general) (routine) without abnormal findings Category: Medical Plan: Cotesting not indicated this year. Mammogram scheduled. Referral to GI placed for Screening colonoscopy Counseled the patient about the recommended dietary allowance of 1000 mg of Calcium & 600 IU of vitamin D. The patient was instructed to perform monthly self-breast exams and to schedule an annual exam in a year; All questions answered and the patient verbalized understanding. Instructed the patient to schedule annual exam in a year (2) Uterine myoma: Code(s): D25.9 - Leiomyoma of uterus, unspecified Category: Medical Plan: Will order pelvic ultrasound. Instructions given the patient to schedule an ultrasound and a follow-up appointment within 2 weeks. All questions answered, the patient verbalized understanding. Orders: Orders MM tomosynthesis screening BI Today Z12.31 - Encounter for screening mammogram for malignant neoplasm of breast US pelvic and transvaginal Today D25.9 - Leiomyoma of uterus, unspecified Referrals Gastroenterology Referral Z12.11 - Encounter for screening for malignant neoplasm of colon Coding Level of Care Code Est Pt Prev Care 40-64y(11141) Diagnoses Well woman exam Z01.419 Uterine myoma D25.9
[2025-05-23 09:39] VITALS: BP 124/76; BMI 46.1
== END 2025-05-23 09:59 | disposition home or self-care (01) ==
LOC: HO.HWS 09:26
PROVIDERS: PCP Internal Medicine; Visit Provider Obstetrics & Gynecology
DX: Z01.419 Encounter for gynecological examination (general) (routine) without abnormal findings (principal); D25.9 Leiomyoma of uterus, unspecified
CPT/HCPCS: 99396; 99459

== ENCOUNTER → 2025-05-23 09:26 | Outpatient (BNVA) | payer OTHER, SELFPAY | PROVIDERS: PCP Internal Medicine; Visit Provider Obstetrics & Gynecology | DX: Z01.419 Encounter for gynecological examination (general) (routine) without abnormal findings (principal); D25.9 Leiomyoma of uterus, unspecified | CPT/HCPCS: 99396 ==

== ENCOUNTER 2025-06-02 12:43 | Outpatient (REF) | payer OTHER, SELFPAY | END 2025-06-02 12:44 | disposition home or self-care (01) | LOC: HO.MAMMO 12:43 | PROVIDERS: PCP Internal Medicine; Referring Provider Obstetrics & Gynecology; Visit Provider Internal Medicine | DX: Z12.31 Encounter for screening mammogram for malignant neoplasm of breast (principal) | CPT/HCPCS: 77063; 77067 ==

== ENCOUNTER → 2025-06-02 13:15 | Outpatient (BNV) | payer OTHER, SELFPAY | PROVIDERS: PCP Internal Medicine; Referring Provider Obstetrics & Gynecology; Visit Provider Radiology Body Imaging | DX: Z12.31 Encounter for screening mammogram for malignant neoplasm of breast (principal) | CPT/HCPCS: 77063; 77067 ==